=== PATIENT | male | born 1935 | race Caucasian/White ===

== ENCOUNTER 2017-10-22 17:50 | Observation (INO) | payer MEDICARE ==
[2017-10-22] MEDS ORDERED: VANCOMYCIN/ZOSYN IVPB PRN (21:06)
[2017-10-22 21:40] LABS: #Eosinphils 0.3 thou/uL (0.0-0.7); #Lymphocytes 1.7 thou/uL (1.20-3.40); #Neutrophils 6.6 thou/uL (1.40-6.50); %Basophils 0.5 % (0.0-1.0); %Eosinophils 2.7 % (0.0-10.0); %Lymphocytes 17.6 % (21.0-51.0); %Monocytes 10.2 % (0.0-10.0); Mean Corpuscular HGB CONC 33.8 g/dL (32.0-36.0); Mean Corpuscular Hemoglobin 34.3 pg (27.0-31.0); Platelet Count 179 thou/uL (130-400); RBC Distribution Width 13.1 % (11.5-14.5); Red Blood Cell (RBC) Count 4.09 mill/uL (4.70-6.10); White Blood Cell (WBC) Count 9.6 thou/uL (4.8-10.8)
[2017-10-22 22:12] LABS: Anion Gap 13 mmol/L (10-20); BUN (Urea Nitrogen) 24 mg/dL (8.4-25.7); Calc. Creatinine Clearance 0 mL/min (70-130); Calcium 8.5 mg/dL (7.8-10.44); Carbon Dioxide 21 mmol/L (23-31); Chloride 107 mmol/L (98-107); Estimated GFR-MDRD 44; Glucose 89 mg/dL (83-110); Magnesium 1.7 mg/dL (1.6-2.6); Potassium 4.2 mmol/L (3.5-5.1); Sodium 137 mmol/L (136-145)
[2017-10-22] MEDS ORDERED: Ondansetron HCl/PF 4 MG/2 ML Vial IVP PRN (22:20)
[2017-10-22] MEDS ORDERED: Acetaminophen 325 MG TAB PO PRN (22:20)
[2017-10-22] MEDS: Piperacillin/Tazobactam 3.375 GM in Sodium Chloride 0.9% 100 ML IVPB SCH (22:43)
[2017-10-22] MEDS: Vancomycin HCl 750 MG in Sodium Chloride 0.9% 250 ML 250 ML IVPB SCH (22:43)
[2017-10-22 23:36] VITALS: BMI 36.0
[2017-10-22] MEDS ORDERED: Vancomycin HCl 1 GM in Premix Bag 1 BAG IVPB SCH (23:59)
[2017-10-23] MEDS ORDERED: Vancomycin HCl 1 GM in Premix Bag 1 BAG IVPB SCH (01:00)
[2017-10-23] MEDS: Vancomycin HCl 750 MG in Sodium Chloride 0.9% 250 ML 250 ML IVPB SCH (01:07)
[2017-10-23] MEDS: Piperacillin/Tazobactam 3.375 GM in Sodium Chloride 0.9% 100 ML IVPB SCH (01:07)
[2017-10-23] MEDS ORDERED: Piperacillin/Tazobactam 2.25 GM in Sodium Chloride 0.9% 100 ML IVPB SCH ×2 (05:00→06:00)
[2017-10-23 08:21] VITALS: TEMP 97.9
[2017-10-23] MEDS ORDERED: Enoxaparin Sodium 40 MG/0.4 ML SYRINGE SC SCH (09:00)
[2017-10-23 11:26] VITALS: BP 136/82
--- NOTE | 2017-10-23 11:48 | SS ---
DATE OF ADMISSION: 10/22/2017 DATE OF DISCHARGE: 10/23/2017 PRIMARY CARE PHYSICIAN: Mario Hatch M.D. CHIEF COMPLAINT: 1. Fever. 2. Physical deconditioning. 3. Oropharyngeal dysphagia. 4. Recurrent aspiration. 5. Hypertension, essential. 6. Hyperlipidemia. CONSULTATIONS: None. PROCEDURES: None. HISTORY AND PHYSICAL: Mr. Guido is an 82-year-old gentleman, discharged on 10/12/2017 to inpatient r ehabilitation. He had been doing well; however, the day of admission, developed a fever. The labs s howed a negative urine, but the white blood cell count of 18,000, and we were asked to directly admit him over here for further workup. Chest x-ray, prior to admission, was unchanged. The patient was transferred over here after I accept ed, but was a holdover from the steward/stewardess lounge. Since admission, the patient has been refusing most of his medications, but had been eating well. He is back to his baseline mental status. No fevers or chills. No nausea, vomiting, diarrhea, constip ation. Repeat labs today show a white count that is normalized. Basic metabolic profile is normal except fo r magnesium slightly low that is being replaced. He was, otherwise, doing well and stable for discha rge. PAST MEDICAL HISTORY, PAST SURGICAL HISTORY, MEDICATIONS, ALLERGIES, FAMILY HISTORY, AND SOCIAL HISTO RY: Please see the history and physical dated 10/11/2017. DISCHARGE PHYSICAL EXAMINATION: The patient was seen and examined on the day of discharge. Discharge plan and disposition were discussed with the patient [id number] at the bedside. Discharge medications are unchanged. FOLLOWUP APPOINTMENTS: With the primary care physician within a week. DISCHARGE CONDITION: Stable. DISPOSITION: Being discharged back to inpatient rehabilitation. DISCHARGE ACTIVITY: Per cardiopulmonary limits. DISCHARGE DIET: Heart healthy.
== END 2017-10-23 13:02 ==
LOC: 2SE 18:51
PROVIDERS: ADMIT Internal Medicine Infectious Disease; ATTEND Internal Medicine Infectious Disease
DX: R50.9 Fever, unspecified (principal); R13.12 Dysphagia, oropharyngeal phase; I10 Essential (primary) hypertension; E78.5 Hyperlipidemia, unspecified; I25.10 Atherosclerotic heart disease of native coronary artery without angina pectoris; I25.2 Old myocardial infarction; F03.90 Unspecified dementia, unspecified severity, without behavioral disturbance, psychotic disturbance, mood disturbance, and anxiety; Z86.73 Personal history of transient ischemic attack (TIA), and cerebral infarction without residual deficits; Z79.82 Long term (current) use of aspirin; Z79.899 Other long term (current) drug therapy; Z95.5 Presence of coronary angioplasty implant and graft
CPT/HCPCS: 80048; 83605; 83735; 84145; 85025; 87040; 87086; G0378; G0379; 36415; J2543; J3370; J7050

== ENCOUNTER 2018-02-21 01:11 | Inpatient (IN) | payer MEDICARE ==
[2018-02-21 01:48] LABS: #Basophils 0.1 thou/uL (0.0-0.2); #Eosinphils 0.2 thou/uL (0.0-0.7); #Lymphocytes 1.5 thou/uL (1.20-3.40); #Monocytes 0.5 thou/uL (0.11-0.59); #Neutrophils 4.4 thou/uL (1.40-6.50); %Basophils 1.1 % (0.0-1.0); %Eosinophils 2.6 % (0.0-10.0); %Lymphocytes 22.2 % (21.0-51.0); %Monocytes 7.7 % (0.0-10.0); %Neutrophils 66.5 % (42.0-75.0); Mean Corpuscular Hemoglobin 35.9 pg (27.0-31.0); Platelet Count 184 thou/uL (130-400); RBC Distribution Width 14.3 % (11.5-14.5); Red Blood Cell (RBC) Count 3.89 mill/uL (4.70-6.10); White Blood Cell (WBC) Count 6.7 thou/uL (4.8-10.8)
[2018-02-21 02:11] LABS: ALT (SGPT) 56 U/L (8-55); AST (SGOT) 57 U/L (5-34); Albumin 2.2 g/dL (3.4-4.8); Alkaline Phosphatase 560 U/L (40-150); Anion Gap 14 mmol/L (10-20); BUN (Urea Nitrogen) 26 mg/dL (8.4-25.7); Bilirubin, Total 4.2 mg/dL (0.2-1.2); Calc. Creatinine Clearance 0 mL/min (70-130); Calcium 8.6 mg/dL (7.8-10.44); Carbon Dioxide 28 mmol/L (23-31); Chloride 98 mmol/L (98-107); Estimated GFR-MDRD 58; Globulin 4.1 g/dL (2.4-3.5); Glucose 77 mg/dL (83-110); Potassium 3.9 mmol/L (3.5-5.1); Protein, Total 6.3 g/dL (5.8-8.1); Sodium 136 mmol/L (136-145)
[2018-02-21] MEDS ORDERED: Sodium Chloride 0.9% 100 ML ONE (04:14)
[2018-02-21] MEDS ORDERED: Piperacillin/Tazobactam 3.375 GM VIAL ONE (04:14)
[2018-02-21] MEDS ORDERED: Sodium Chloride 0.9% 1,000 ML IV SCH (06:30)
[2018-02-21 07:26] VITALS: BMI 28.3
--- NOTE | 2018-02-21 09:14 | ULT ---
PRELIMINARY REPORT/[facility]/EMERGENTY AFTER-HOURS PROCEDURE US Abdomen Limited, Right Upper Quadrant EXAM DATE/TIME: 02/21/2018 3:13 AM CLINICAL HISTORY: 82 years old, male; Pain; Abdominal pain; Generalized TECHNIQUE: Real-time ultrasound of the abdomen with image documentation. Examination was focused on the right up per quadrant. COMPARISON: No relevant prior studies available. FINDINGS: Liver: Normal. No masses. Gallbladder: Echogenic, shadowing foci within the gallbladder, compatible with calcified gallstones. Gallbladder wall is 5 mm in thickness. Minimal pericholecystic fluid. Common bile duct: Common bile duct measures 10 mm in greatest diameter. Mild intrahepatic biliary dil ation. Pancreas: Visualized pancreas is unremarkable. Right kidney: Right kidney measures 9.8 cm in length. Simple right renal cyst measuring 15 mm in diam eter. IMPRESSION: 1. Cholelithiasis, with gall bladder wall thickening and pericholecystic fluid, compatible with acute cholecystitis. 2. Mild biliary dilation, without definite etiology identified. Obstructive choledocholithiasis possi ble. Recommend further evaluation with ERCP/MRCP. Thank you for allowing us to participate in the care of your patient. Dictated and Authenticated by: Fransisco Sears MD 02/21/2018 4:00 AM Central Time ([place] & [place]) FINAL REPORT SONOGRAM RIGHT UPPER QUADRANT: DATE: 03/03/2018. TIME: Performed on an emergency basis at 0314 hours. HISTORY: Right upper quadrant pain. FINDINGS: Agree with the preliminary report by Dr. Sears. Cholelithiasis is confirmed. There is gallbladder wall thickening and pericholecystic fluid. Common bile duct is dilated at 10 mm. Findings are consi stent with biliary obstruction and acute cholecystitis. POS: S[facility]
[2018-02-21] MEDS ORDERED: Dextrose 5 % And 0.9 % NaCl 1,000 ML IV SCH (10:30)
[2018-02-21] MEDS ORDERED: Piperacillin/Tazobactam 3.375 GM in Sodium Chloride 0.9% 100 ML IVPB SCH (12:00)
[2018-02-21] MEDS ORDERED: Morphine 2 MG/ML SYRINGE SLOW IVP PRN (12:59)
[2018-02-21] MEDS ORDERED: Ziprasidone 20 MG VIAL IM PRN (13:55)
[2018-02-21] MEDS ORDERED: Haloperidol Lactate 5 MG/ML VIAL IM PRN (13:56)
[2018-02-21] MEDS ORDERED: Acetaminophen 1,000 MG in Premix Bag 1 BAG IVPB PRN (13:57)
[2018-02-21] MEDS ORDERED: Sterile Water 10 ML VIAL FS PRN (14:02)
--- NOTE | 2018-02-21 14:02 | CON ---
DATE OF CONSULTATION: 02/21/2018 REFERRING DOCTOR: Thanh Prajapati MD REASON FOR CONSULTATION: Abdominal pain, abnormal LFTs, and abdominal sonogram showing dilation of CBD. HISTORY OF PRESENT ILLNESS: Mr. Balta Guido is an 82-year-old male transferred with abdominal pain and elevated LFTs. The patient apparently has dementia and also a history of CVA. Although, he is awake, he does not really verbalize. He tends to nod his head when asking him questions. When asked him if has abdominal pain, he says no. However, he is still very articulate and does not communicate very much. Most of the history is obtained by the ER doctor's admitting note from this morning. Apparently, he was transferred from [place] because of abdominal pain and abnormal LFTs. An abdominal sonogram done showed gallstones and also the CBD is about 10 mm. Liver function tests were elevated and cholestatic. The AST is 57, ALT is 56, alkaline phosphatase 560, bilirubin is 4.2. He has no relevant history. ALLERGIES: NONE. MEDICAL ILLNESSES: 1. Coronary artery disease, status post stent placement. 2. Hyperlipidemia. 3. Hypertension. 4. CVA. 5. Dementia. SURGERIES: 1. Appendectomy. 2. He has had left hip replacement. 3. Carotid surgery, . SOCIAL HISTORY: The patient has no history of smoking. He does drink alcohol socially. MEDICATIONS: List reviewed, which include aspirin, pantoprazole, lisinopril, and calcium carbonate. REVIEW OF SYSTEMS: Not able to obtain. PHYSICAL EXAMINATION: GENERAL: He is an elderly male, appears comfortable, in no distress. VITAL SIGNS: Afebrile, pulse is 50, blood pressure 160/77. He is icteric. NECK: Supple. No adenitis or thyromegaly noted. CARDIOVASCULAR SYSTEM: First and second heart sounds are heard. LUNGS: Clear to auscultation. ABDOMEN: Soft. Abdomen is nondistended. Abdomen is minimally tender over the epigastric area, right upper quadrant. There is no rebound or guarding. There is a fullness over the epigastric area of the right upper quadrant. Bowel sounds are normal. EXTREMITIES: Reveal no edema. LABORATORY DATA: CBC; WBC 6700, hemoglobin is 14, hematocrit 39.8, MCV 102, platelet count is 184,000, polymorphs 66, lymphocytes 22, monocytes 7. Serum chemistries; sodium is 136, potassium is 3.9, chloride 98, bicarb is 28, BUN is 26, creatinine 1.20, glucose 77, calcium 8.0, bilirubin 4.2, AST is 57, ALT 56, alkaline phosphatase 560, albumin 2.2. DIAGNOSTIC DATA: Abdominal sonogram showed gallstones and also dilation of CBD to 10 mm. CLINICAL IMPRESSION: 1. Chololithiasis and possible choledocholithiasis. 2. Coronary artery disease, status post stent placement. 3. Past history of cerebrovascular accident. 4. Dementia. 5. Hypertension. PLAN: The ERCP and stone removal. Unfortunately, there is no family available. When the family comes in, we will try to get a permit for ERCP. Hopefully, the ERCP can be done later on today. Job ID: [id number]
[2018-02-21] MEDS: Dextrose 5 % And 0.9 % NaCl 1,000 ML IV SCH ×2 (16:30→19:50)
--- NOTE | 2018-02-21 18:28 | CON ---
DATE OF CONSULTATION: 02/21/2018 CHIEF COMPLAINT: Gallstones. HISTORY OF PRESENT ILLNESS: Mr. Guido is an 82-year-old demented gentleman, who presented to the [place] [facility] room with a history of cholelithiasis and choledocholithiasis by imaging at his local emergency room. There was not much history available and the patient denies any abdominal pain, but is a very poor historian due to his advanced dementia. On speaking with the patient's , he has not really been eating much at all for the past three or four days and has had a couple of episodes of vomiting, nonbloody, nonbilious fluid. He was not complaining of any pain. However, he was taken to the emergency room last night in [facility] and a CT scan showed filling defects in the distal common bile duct, which was enlarged. This was felt to be most consistent with choledocholithiasis and the patient was transferred to [place] for further care. Ultrasound here confirmed a dilated common bile duct and multiple stones in the gallbladder, although the distal common bile duct stones were not visualized by ultrasound. This morning, the patient states that he is not having any abdominal pain or nausea. He denies hunger or thirst. He denies shortness of breath or chest pain. He is intermittently cooperative, but unable to answer any complex questions and sometimes does not answer questions at all. PAST MEDICAL HISTORY: Obtained from conversation with the and chart review. He has a history of coronary artery disease, status post stenting by Dr. Nolasco. He also has a history of an aortic aneurysm, status post stenting by Dr. Luna. He has a history of hyperlipidemia and high cholesterol and some history of lung disease. He has severe dementia and possible stroke in the past. PAST SURGICAL HISTORY: Appendectomy, coronary artery stenting and distal aortic stenting and hip replacement. He is currently a intermediate patient. He does not smoke, drink, or use illicit drugs. ALLERGIES: HE HAS NO KNOWN ALLERGIES. OUTPATIENT MEDICATIONS: Include; 1. Aspirin. 2. Pantoprazole. 3. Lisinopril. 4. Tums. 5. Zetia. 6. Melatonin. 7. Simethicone. PHYSICAL EXAMINATION: VITAL SIGNS: The patient is drowsy, but arousable and answers some questions. He is unable to state his name, location, date, or situation. GENERAL: Reveals a frail appearing elderly man in no acute distress. He is slightly jaundiced. HEENT: Unremarkable. NECK: Supple without lymphadenopathy or thyroid nodules. HEART: Regular in its rate and rhythm without murmurs, rubs, or gallops. LUNGS: Clear to auscultation bilaterally, although inspiratory effort is poor. ABDOMEN: Soft and nondistended. He states that "I am pushing the urine out" when I palpate his abdomen, but he is unable to identify any focal pain. EXTREMITIES: Warm and well perfused. He complains of pain with palpation of his ankles, but does not have any significant edema. He has normal palpable pedal pulses. NEUROLOGIC: Unable to be performed, although the patient was noted to move all four extremities in bed. He states that he ambulates short distances, but I was unable to confirm this. PSYCHIATRIC: Alert, but disoriented and only intermittently cooperative. LABORATORY DATA: His white count is normal at 6.7, hematocrit 39.8, platelets 184. Bilirubin is elevated at 4.2, AST and ALT are 57 and 56, and alkaline phosphatase is 560. Electrolytes are unremarkable. Ultrasound images are reviewed and I agree with the written report. I have reviewed the written report for the CT, but was unable to open the disk containing the images. ASSESSMENT: Cholelithiasis and choledocholithiasis. I have discussed the patient's diagnosis with his by telephone and she is coming to [facility] [place] today. Since he has three stones seen in the common bile duct on CT, I would recommend ERCP first to address the choledocholithiasis. If he tolerates this, I would recommend that he undergo laparoscopic cholecystectomy to prevent future episodes of common bile duct stones. I have consulted Dr. Nolasco to evaluate and help manage the patient perioperatively per the 's request. Dr. Leary has been consulted for ERCP and so the patient has ERCP today. Laparoscopic cholecystectomy could be performed postoperatively if he is not bloated or distended and if the ERCP is fairly quick. Otherwise, I would recommend laparoscopic cholecystectomy the following day after the bowel gas has had a chance to pass through. Job ID: [id number]
--- NOTE | 2018-02-21 18:43 | CON ---
DATE OF CONSULTATION: 02/21/2018 REASON FOR CONSULTATION: Preoperative evaluation. PRIMARY ENVIRONMENTAL PROTECTION SPECIALIST: Abelardo Nolasco MD HISTORY OF PRESENT ILLNESS: Mr. Guido is a pleasant 82-year-old white gentleman, who comes to the hospital for abdominal pain. He was diagnosed with acute cholecystitis and is scheduled to have an ERCP with Dr. Leary, and probably the next day having cholecystectomy. He has dementia and is unable to give me much history. I can see on our records, the last time he saw Dr. Nolasco was in September of last year and at that time, he was having a very nonspecific episodes of chest pain and a stress test was ordered and he never had this done. Currently, Mr. Guido denies any chest pain, tightness or pressure and he only admits to abdominal pain; however, he is somewhat demented and most of his answers are no. PAST MEDICAL HISTORY: 1. Coronary artery disease, status post stent to ramus in 2005 and balloon angioplasty of diagonal. 2. Hyperlipidemia. 3. Hypertension. 4. History of CVA. 5. Dementia. PAST SURGICAL HISTORY: 1. Appendectomy. 2. Left hip replacement. 3. Carotid surgery. SOCIAL HISTORY: No alcohol, tobacco, or drugs. OUTPATIENT MEDICATIONS: Include: 1. Crestor 40 mg a day. 2. Protonix 40 mg a day. 3. Naproxen 220 mg t.i.d. p.r.n. 4. Lisinopril 10 mg a day. 5. Zetia 10 mg a day. 6. Aspirin 325 mg a day. 7. Augmentin. ALLERGIES: NO KNOWN DRUG ALLERGIES. FAMILY HISTORY: Noncontributory. REVIEW OF SYSTEMS: Unable to obtain as the patient is minimally verbal. PHYSICAL EXAMINATION: VITAL SIGNS: Temperature 97.9, pulse 51, respiratory rate 18, sat 92% on room air, blood pressure 148/71. GENERAL: Awake, alert, and oriented to person only, in no distress. HEENT: Normocephalic and atraumatic. NECK: Supple. LUNGS: Clear. CARDIOVASCULAR: S1 and S2. No S3 or S4. There is a grade 2/6 systolic murmur at the right upper sternal border. ABDOMEN: Positive bowel sounds. EXTREMITIES: No edema. SKIN: Warm and dry. LABORATORY DATA: Laboratory work was reviewed. CBC with a white count of 6, hemoglobin of 14, hematocrit of 39, platelet count of 184. Chemistry showed a BUN of 26, creatinine 1.2, GFR was 68, glucose of 77, total bilirubin was 4.2, AST and ALT were 57 and 56 and alkaline phosphatase was 560, albumin 2.2. DIAGNOSTIC STUDIES: EKG was reviewed. Abdominal ultrasound was reviewed. ASSESSMENT AND PLAN: 1. Preoperative evaluation. Mr. Guido is at high risk for an intermediate risk procedure. He has a history of coronary artery disease. He is unable to give any history and he was scheduled to have an ischemic evaluation and he did not show up. At this time, given his acute illness, his risk for surgery is certainly not prohibitive and after talking with the family, they were in agreement to proceed regardless of being high risk and I think this is appropriate. Would proceed with the . 2. We will get an echocardiogram to evaluate LV function and valvular structures and make sure what to expect with them as far as fluids is concerned. 3. Dr. Nolasco is his primary practical nursing instructor, will follow up in the morning. Job ID: [id number]
[2018-02-21] MEDS: Famotidine/PF 20 mg/2ml Vial SLOW IVP SCH (19:50)
[2018-02-21] MEDS: Ondansetron PF 4 MG/2 ML Vial IVP PRN (19:50)
[2018-02-21] MEDS ORDERED: Morphine 4 MG/ML VIAL SLOW IVP PRN (20:00)
--- NOTE | 2018-02-22 01:19 | HP ---
CHIEF COMPLAINT: Agitation, abdominal pain. HISTORY OF PRESENT ILLNESS: He is a very pleasant 82-year-old male with past medical history of CAD, dementia, hypertension, stroke, and hyperlipidemia, who presented to the hospital with abdominal pain. The patient initially was transferred from [facility] for possible choledocholithiasis. Per who is at the bedside, she stated that for the past few days, he has been more agitated than his baseline. The patient also has been nauseated couple times and also she noticed that he appeared to be more jaundiced. The patient had complained couple times to her about having some abdominal pain. According to her, he has not been eating very much for the past few days, which is unlike himself. PAST MEDICAL HISTORY: 1. Hypertension. Hyperlipidemia. 1. History of SD. 2. He has history of strokes. 3. He has history of CAD with stent placements, last one was in 2005. PAST SURGICAL HISTORY: 1. Appendectomy. 2. Hip replacement. 3. Carotid surgery. SOCIAL HISTORY: The patient's states that he does not drink any alcohol or drug use. He is a former smoker. He currently lives in a longterm and he is a DNI. I did discuss this with the patient's . FAMILY HISTORY: No history of heart disease and cancer. MEDICATIONS: The patient takes: 1. Trazodone 50 mg daily. 2. Quetiapine 50 mg daily. 3. Omeprazole 20 mg daily. 4. Memantine 50 mg daily. 5. Furosemide 40 mg daily. 6. Citalopram 10 mg daily. 7. Melatonin 3 mg for sleep. 8. Ezetimibe 10 mg daily. 9. Divalproex 125 mg sprinkles. ALLERGIES: THE PATIENT HS NO KNOWN DRUG ALLERGIES. FAMILY HISTORY: No history of heart disease or cancer. REVIEW OF SYSTEMS: Unable to obtain since the patient has dementia. PHYSICAL EXAMINATION: VITAL SIGNS: As of the following; temperature of 97.9, heart rate of 51, respirations 18, 92% on room air, blood pressure 148/71. GENERAL: The patient is awake, oriented x2 now. HEENT: The patient's pupils equal and reactive to light. CV: S1 and S2 present. Sinus Amor. No murmurs or rubs heard. LUNGS: Clear to auscultation. No rhonchi or wheezes noted. ABDOMEN: Bowel sounds are present x2. The patient does not have any pain on palpation, on deep palpation to his right upper quadrant or anywhere in his abdomen area on my exam. NEUROLOGIC: The patient is moving all 4 extremities. SKIN: No cuts, lesions, or bruises noted. HEENT: Normocephalic, atraumatic. No lymphadenopathy noted. MUSCULOSKELETAL: No atrophy noted. LABORATORY RESULTS: As of the following; WBCs of 6.7, hemoglobin of 14.0, hematocrit of 39.8, platelets are 184. Chemistry: Sodium of 136, potassium of 3.9, BUN of 26, creatinine 1.20. His bilirubin is 4.2, AST of 57, ALT of 56, alkaline phosphatase of 560. He did have a CT of abdomen and pelvis at the outside facility, which indicated severe coronary artery calcification. There was mention of few small stones in the gallbladder. The gallbladder was noted to be distended. However, there was no gallbladder wall thickening. The patient also was found to have a right middle lobe nodule. Also noted to have dependent atelectatic changes in both posterior lung bases. Tiny nodule in the lingula measuring less than 3 mm was also noted. Mild ectasia of the descending thoracic aorta also was noted. Noted to have a large intrahepatic bile duct dilation. Filling defect in the common bile duct was also noted. The patient also had an ultrasound of the abdomen, which indicated cholelithiasis with gallbladder wall thickening and pericholecystic fluid compatible with acute cholecystitis. ASSESSMENT AND PLAN: The patient is a very pleasant 82-year-old man who presents to the hospital with abdominal pain. 1. Acute cholecystitis. The patient currently does have significant duct dilation, which could cause the patient to have choledocholithiasis. Gastroenterology has been consulted, possible endoscopic retrograde cholangiopancreatography in the morning. 2. Also, given patient's cardiac history, I will order an EKG and cardiology has been consulted for clearance. Surgery also has been consulted. I spoke with the patient's family extensively and answered all the questions. We will start the patient on some gentle hydration, pain medication as needed. 3. Elevated liver function tests and alkaline phosphatase, most likely secondary to choledocholithiasis. Continue hydration. We will check labs in the morning. Also patient is on Zosyn. 4. Dementia, agitation type. According to family, patient has severe dementia with significant agitation. We will put on p.r.n. Geodon and Haldol. We would stay away from Ativan since this would worsen patient's mentation. 5. For deep venous thrombosis prophylaxis, we will put the patient currently on sequential compression devices, but he will require some Lovenox post surgery. 6. Code status discussed with the patient's . The patient is currently a DNR. Job ID: [id number]
[2018-02-22 07:52] LABS: #Basophils 0.1 thou/uL (0.0-0.2); #Eosinphils 0.3 thou/uL (0.0-0.7); #Lymphocytes 1.4 thou/uL (1.20-3.40); #Monocytes 0.5 thou/uL (0.11-0.59); %Basophils 1.3 % (0.0-1.0); %Eosinophils 5.4 % (0.0-10.0); %Lymphocytes 26.6 % (21.0-51.0); %Monocytes 9.2 % (0.0-10.0); %Neutrophils 57.5 % (42.0-75.0)
[2018-02-22 07:54] LABS: Hemoglobin 13.2 g/dL (14.0-18.0); Mean Corpuscular HGB CONC 30.3 g/dL (32.0-36.0); Mean Corpuscular Hemoglobin 33.8 pg (27.0-31.0); Mean Platelet Volume 8.4 fL (7.4-10.4); Platelet Count 174 thou/uL (130-400); RBC Distribution Width 14.6 % (11.5-14.5); Red Blood Cell (RBC) Count 3.89 mill/uL (4.70-6.10); White Blood Cell (WBC) Count 5.2 thou/uL (4.8-10.8)
[2018-02-22 08:01] LABS: ALT (SGPT) 39 U/L (8-55); AST (SGOT) 42 U/L (5-34); Albumin 1.9 g/dL (3.4-4.8); Alkaline Phosphatase 456 U/L (40-150); Anion Gap 12 mmol/L (10-20); BUN (Urea Nitrogen) 20 mg/dL (8.4-25.7); Bilirubin, Total 3.3 mg/dL (0.2-1.2); Calc. Creatinine Clearance 55 mL/min (70-130); Calcium 8.2 mg/dL (7.8-10.44); Carbon Dioxide 26 mmol/L (23-31); Chloride 105 mmol/L (98-107); Estimated GFR-MDRD 57; Globulin 3.6 g/dL (2.4-3.5); Glucose 86 mg/dL (83-110); Potassium 3.8 mmol/L (3.5-5.1); Protein, Total 5.5 g/dL (5.8-8.1); Sodium 139 mmol/L (136-145)
[2018-02-22] MEDS: Dextrose 5 % And 0.9 % NaCl 1,000 ML IV SCH (10:14)
[2018-02-22] MEDS ORDERED: Fentanyl 100 MCG/2 ML VIAL ONE (10:15)
[2018-02-22] MEDS ORDERED: Indomethacin 50 MG SUPP ONE (10:28)
[2018-02-22] MEDS ORDERED: Iothalamate Meglumine 60% 50 ML VIAL FS ONE (10:35)
--- NOTE | 2018-02-22 14:15 | RAD ---
ERCP INTRAOPERATIVE FLUOROSCOPY: HISTORY: Cholecystitis. FINDINGS: Intraoperative fluoroscopy is provided for ERCP. IMPRESSION: Spot fluoroscopic images show an endoscopic catheter overlying the right upper quadrant. There is ca theterization and opacification of a dilated common duct, estimated at 1.3 cm. Oval filling defects are present on some images. Correlation with real-time fluoroscopy is required regarding the possibi lity of air bubbles versus persistent filling defects such as stones. POS: KASSIE
[2018-02-22] MEDS ORDERED: Glycopyrrolate 0.2 MG/ML 5 ML SYRINGE ONE (16:30)
[2018-02-22] MEDS ORDERED: ePHEDrine/0.9% NaCl/PF SYRINGE 50 mg/10 ml ONE (16:30)
[2018-02-22] MEDS ORDERED: PROPOFOL 200 MG/20 ML VIAL ONE (16:30)
[2018-02-22] MEDS ORDERED: Lidocaine 1% PF 5 ML VIAL ONE (16:30)
[2018-02-22] MEDS ORDERED: Rocuronium Bromide 10 MG/ML (10ML VIAL) ONE (16:30)
[2018-02-22] MEDS: Piperacillin/Tazobactam 3.375 GM in Sodium Chloride 0.9% 100 ML IVPB SCH (18:06)
[2018-02-22 18:11] LABS: ALT (SGPT) 37 U/L (8-55); AST (SGOT) 42 U/L (5-34); Albumin 2.1 g/dL (3.4-4.8); Alkaline Phosphatase 471 U/L (40-150); Anion Gap 14 mmol/L (10-20); BUN (Urea Nitrogen) 18 mg/dL (8.4-25.7); Calc. Creatinine Clearance 56 mL/min (70-130); Calcium 8.2 mg/dL (7.8-10.44); Carbon Dioxide 23 mmol/L (23-31); Chloride 107 mmol/L (98-107); Estimated GFR-MDRD 58; Globulin 3.6 g/dL (2.4-3.5); Glucose 90 mg/dL (83-110); Potassium 4.1 mmol/L (3.5-5.1); Protein, Total 5.7 g/dL (5.8-8.1); Sodium 140 mmol/L (136-145)
--- NOTE | 2018-02-22 19:54 | OP ---
DATE OF PROCEDURE: 02/22/2018 OPERATIVE PROCEDURE: 1. Endoscopic retrograde cholangiopancreatography. 2. Papillotomy. 3. Stone extraction with size 12 to 15 mm in balloon. PREOPERATIVE DIAGNOSES: 1. Abnormal LFTs. 2. Common bile duct stone. 3. Dilated common bile duct on CAT scan, sonogram. POSTOPERATIVE DIAGNOSES: 1. Two diverticula within the descending duodenum. Papilla was located at the margin of the diverticula. 2. Markedly dilated common bile duct with multiple filling defects. DESCRIPTION OF PROCEDURE: The patient was intubated and was given sedation by Anesthesia Department. The patient also received a dose of suppositories before the procedure. The patient was transferred from the stretcher to the fluoroscopy table. Initially, he was placed in left lateral position and transverse stomach. A bite block was placed. A Zedmo video duodenoscope under direct vision passed down the oropharynx through the GE junction into the stomach and subsequently into the descending duodenum. The patient had large diverticula in the descending duodenum. Initially, it was difficult to visualize the papilla. With a short route, the papilla could not be really visualized. The long route has to be used to try to get access to the papilla. The papilla was easily cannulated over a guidewire into the common bile duct. The contrast injection showed markedly dilated bile duct with positive filling defects; at least 3 to 4 filling defects. A generous papillotomy was brought at 12 o'clock position. Following the papillotomy, there were multiple small tiny stone fragments and sludge that came out. There was dark bile freely flowing into the duodenum. The papillotome was exchanged with biliary balloon size 12 to 15 mm. The balloon was used to sweep out 2 ducts. The third stone was very large. We could not remove it with balloon. The papillotome was used to enlarge the papilla. Following this, it was exchanged to a biliary balloon again and there was large stone which probably measured at least minimum 2 cm removed using the balloon. Subsequently, occlusion cholangiogram showed no filling defects. We saw the contrast emptying very easily. RECOMMENDATIONS: 1. Discontinue n.p.o. 2. Clear liquid diet. 3. Laparoscopic cholecystectomy as per Dr. Prajapati. This was discussed with the patient's family and his and son, and [id number]. Job ID: [id number]
[2018-02-22] MEDS: Famotidine/PF 20 mg/2ml Vial SLOW IVP SCH (20:27)
--- NOTE | 2018-02-22 21:05 | EKG ---
Test Reason : Blood Pressure : / mmHG Vent. Rate : 050 BPM Atrial Rate : 050 BPM P-R Int : 204 ms QRS Dur : 082 ms QT Int : 500 ms P-R-T Axes : 033 -18 001 degrees QTc Int : 455 ms Sinus bradycardia with Premature atrial complexes Low voltage QRS Inferior infarct (cited on or before 23-JAN-2006) Abnormal ECG When compared with ECG of 11-OCT-2017 15:02, Premature atrial complexes are now Present T wave amplitude has increased in Anterior leads QT has lengthened Confirmed by Hossein DESIR ([id number]) on 02/22/2018 9:05:36 PM Referred By: JENS Confirmed By:Hossein DESIR
[2018-02-23] MEDS: Piperacillin/Tazobactam 3.375 GM in Sodium Chloride 0.9% 100 ML IVPB SCH ×4 (00:42→21:26)
--- NOTE | 2018-02-23 05:33 | PDOC.PN ---
- Subjective Encounter Start Date: 02/22/18 Encounter Start Time: 15:00 Subjective: pt up in bed sleeping, post ERCP - Objective Resuscitation Status - Order Detail: 02/21/18 18:36 Resuscitation Status Routine Resuscitation Status: DNAR: NO Resuscitation Discussed with: pt's Vital Signs & Weight: Vital Signs (12 hours) Temp Pulse Resp BP Pulse Ox 02/23/18 04:00 97.4 F L 43 L 18 136/62 94 L 02/23/18 00:00 97.8 F 43 L 18 129/66 93 L 02/22/18 20:27 95 02/22/18 20:00 97.3 F L 45 L 18 154/79 H 95 02/22/18 18:30 43 L 160/89 H Weight Weight 186 lb 1.6 oz I&O: 02/21/18 02/22/18 02/23/18 06:59 06:59 06:59 Intake Total 1200 Balance 1200 Result Diagrams: 02/22/18 06:52 02/22/18 17:48 Phys Exam - Physical Examination Neck: no nodes, no JVD, supple, full ROM Respiratory: no wheezing, no rales, no rhonchi, wheezing present, clear to auscultation bilateral Cardiovascular: RRR, no significant murmur, no rub, gallop, irregular Gastrointestinal: soft, non-tender, no distention, positive bowel sounds Neurological: non-focal sleepy but easily arousable Dx/Plan (1) Abdominal pain Code(s): R10.9 - UNSPECIFIED ABDOMINAL PAIN Status: Acute (2) Acute cholecystitis Code(s): K81.0 - ACUTE CHOLECYSTITIS Status: Acute (3) Choledocholithiasis Code(s): K80.50 - CALCULUS OF BILE DUCT W/O CHOLANGITIS OR CHOLECYST W/O OBST Status: Acute (4) Dementia Code(s): F03.90 - UNSPECIFIED DEMENTIA WITHOUT BEHAVIORAL DISTURBANCE Status: Acute (5) Elevated LFTs Code(s): R94.5 - ABNORMAL RESULTS OF LIVER FUNCTION STUDIES Status: Acute - Plan pt post ERCP, multiple stones removed -: will put pt on CL diet and npo after midnight for lap anurag -: echo ordered not done yet -: will conitnue abx for now -: family updated * . Review of Systems - Review of Systems Other: unable to obtain - Medications/Allergies Allergies/Adverse Reactions: Allergies Allergy/AdvReac Type Severity Reaction Status Date / Time No Known Allergies Allergy Verified 10/23/17 06:16 Medications: Current Medications Famotidine (Pepcid) 20 mg SLOW IVP 2100 [facility] Last Admin: 02/22/18 20:27 Dose: 20 mg Haloperidol Lactate (Haldol) 5 mg IM Q4H PRN PRN Reason: Agitation Dextrose/Sodium Chloride (D5 0.9% Ns) 1,000 mls @ 100 mls/hr IV .Q10H [facility] Last Admin: 02/22/18 10:14 Dose: Not Given Piperacillin Sod/Tazobactam (Sod 3.375 gm/ Sodium Chloride) 100 mls @ 200 mls/ hr IVPB Q6HR [facility] Last Admin: 02/23/18 00:42 Dose: 100 mls Miscellaneous Medication (Pharmacy To Dose) 1 each IVPB PRN PRN PRN Reason: Pharmacy to dose Morphine Sulfate (Morphine) 2 mg SLOW IVP Q4H PRN PRN Reason: Pain Last Admin: 02/21/18 20:11 Dose: 2 mg Ondansetron HCl (Zofran) 4 mg IVP Q6H PRN PRN Reason: Nausea/Vomiting Last Admin: 02/21/18 19:50 Dose: 4 mg Sodium Chloride (Flush - Normal Saline) 10 ml IVF PRN PRN PRN Reason: Saline Flush Last Admin: 02/21/18 20:11 Dose: 10 ml Sterile Water (Water For Injection) 10 ml FS Q2H PRN PRN Reason: TO RECONSTITUTE ZIPRASIDONE Ziprasidone (Geodon) 10 mg IM Q2H PRN PRN Reason: Agitation
[2018-02-23] MEDS: Dextrose 5 % And 0.9 % NaCl 1,000 ML IV SCH ×2 (08:26→08:44)
--- NOTE | 2018-02-23 11:16 | PDOC.PN ---
- Subjective Encounter Start Date: 02/23/18 Encounter Start Time: 10:30 Subjective: pt up in bed more awake -: pt got upset and was agressive last night - Objective Resuscitation Status - Order Detail: 02/21/18 18:36 Resuscitation Status Routine Resuscitation Status: DNAR: NO Resuscitation Discussed with: pt's Vital Signs & Weight: Vital Signs (12 hours) Temp Pulse Resp BP Pulse Ox 02/23/18 08:00 97.4 F L 42 L 18 176/50 H 93 L 02/23/18 04:00 97.4 F L 43 L 18 136/62 94 L 02/23/18 00:00 97.8 F 43 L 18 129/66 93 L Weight Weight 186 lb 1.6 oz I&O: 02/22/18 02/23/18 02/24/18 06:59 06:59 06:59 Intake Total 1200 800 Balance 1200 800 Result Diagrams: 02/22/18 06:52 02/22/18 17:48 Phys Exam - Physical Examination Neck: no nodes, no JVD, supple, full ROM Respiratory: no wheezing, no rales, no rhonchi, wheezing present, clear to auscultation bilateral Cardiovascular: RRR, no significant murmur, no rub, gallop, irregular Gastrointestinal: soft, non-tender, no distention, positive bowel sounds awake, oriented to self Dx/Plan (1) Abdominal pain Code(s): R10.9 - UNSPECIFIED ABDOMINAL PAIN Status: Acute (2) Acute cholecystitis Code(s): K81.0 - ACUTE CHOLECYSTITIS Status: Acute (3) Choledocholithiasis Code(s): K80.50 - CALCULUS OF BILE DUCT W/O CHOLANGITIS OR CHOLECYST W/O OBST Status: Acute (4) Dementia Code(s): F03.90 - UNSPECIFIED DEMENTIA WITHOUT BEHAVIORAL DISTURBANCE Status: Acute (5) Elevated LFTs Code(s): R94.5 - ABNORMAL RESULTS OF LIVER FUNCTION STUDIES Status: Acute - Plan s/p ercp, going to surgery today for lap anurag -: iv out unable to get iv in -: echo pending * . Review of Systems - Review of Systems Respiratory: negative: Cough, Dry, Shortness of Breath, Hemoptysis, SOB with Excertion, Pleuritic Pain, Sputum, Wheezing Cardiovascular: negative: chest pain, palpitations, orthopnea, paroxysmal nocturnal dyspnea, edema, light headedness, other Gastrointestinal: negative: Nausea, Vomiting, Abdominal Pain, Diarrhea, Constipation, Melena, Hematochezia, Other - Medications/Allergies Allergies/Adverse Reactions: Allergies Allergy/AdvReac Type Severity Reaction Status Date / Time No Known Allergies Allergy Verified 10/23/17 06:16 Medications: Current Medications Famotidine (Pepcid) 20 mg SLOW IVP 2100 [facility] Last Admin: 02/22/18 20:27 Dose: 20 mg Haloperidol Lactate (Haldol) 5 mg IM Q4H PRN PRN Reason: Agitation Dextrose/Sodium Chloride (D5 0.9% Ns) 1,000 mls @ 100 mls/hr IV .Q10H [facility] Last Admin: 02/23/18 08:44 Dose: Not Given Piperacillin Sod/Tazobactam (Sod 3.375 gm/ Sodium Chloride) 100 mls @ 200 mls/ hr IVPB Q6HR [facility] Last Admin: 02/23/18 08:26 Dose: Not Given Miscellaneous Medication (Pharmacy To Dose) 1 each IVPB PRN PRN PRN Reason: Pharmacy to dose Morphine Sulfate (Morphine) 2 mg SLOW IVP Q4H PRN PRN Reason: Pain Last Admin: 02/21/18 20:11 Dose: 2 mg Ondansetron HCl (Zofran) 4 mg IVP Q6H PRN PRN Reason: Nausea/Vomiting Last Admin: 02/21/18 19:50 Dose: 4 mg Sodium Chloride (Flush - Normal Saline) 10 ml IVF PRN PRN PRN Reason: Saline Flush Last Admin: 02/21/18 20:11 Dose: 10 ml Sterile Water (Water For Injection) 10 ml FS Q2H PRN PRN Reason: TO RECONSTITUTE ZIPRASIDONE Ziprasidone (Geodon) 10 mg IM Q2H PRN PRN Reason: Agitation
[2018-02-23 11:32] LABS: #Basophils 0.1 thou/uL (0.0-0.2); #Eosinphils 0.2 thou/uL (0.0-0.7); #Lymphocytes 1.5 thou/uL (1.20-3.40); #Monocytes 0.5 thou/uL (0.11-0.59); #Neutrophils 4.2 thou/uL (1.40-6.50); %Basophils 1.3 % (0.0-1.0); %Eosinophils 2.4 % (0.0-10.0); %Lymphocytes 23.9 % (21.0-51.0); %Monocytes 7.4 % (0.0-10.0); %Neutrophils 64.9 % (42.0-75.0); Hemoglobin 13.7 g/dL (14.0-18.0); Mean Corpuscular HGB CONC 32.2 g/dL (32.0-36.0); Mean Corpuscular Hemoglobin 33.2 pg (27.0-31.0); Mean Platelet Volume 7.6 fL (7.4-10.4); Platelet Count 147 thou/uL (130-400); RBC Distribution Width 14.3 % (11.5-14.5); Red Blood Cell (RBC) Count 4.13 mill/uL (4.70-6.10); White Blood Cell (WBC) Count 6.4 thou/uL (4.8-10.8)
[2018-02-23 11:55] LABS: ALT (SGPT) 40 U/L (8-55); AST (SGOT) 42 U/L (5-34); Albumin 2.2 g/dL (3.4-4.8); Alkaline Phosphatase 465 U/L (40-150); Anion Gap 16 mmol/L (10-20); BUN (Urea Nitrogen) 21 mg/dL (8.4-25.7); Bilirubin, Total 3.1 mg/dL (0.2-1.2); Calc. Creatinine Clearance 50 mL/min (70-130); Calcium 8.4 mg/dL (7.8-10.44); Carbon Dioxide 24 mmol/L (23-31); Chloride 108 mmol/L (98-107); Estimated GFR-MDRD 51; Glucose 82 mg/dL (83-110); Potassium 4.1 mmol/L (3.5-5.1); Protein, Total 6.2 g/dL (5.8-8.1); Sodium 144 mmol/L (136-145)
--- NOTE | 2018-02-23 12:20 | PRG ---
DATE OF SERVICE: 02/23/2018 SUBJECTIVE: Mr. Guido is seen today for Dr. Prajapati. The patient underwent ERCP, sphincterotomy stone extraction by Dr. Leary yesterday. He seems to be doing well this morning. His laboratories are pending. CBC returned this morning, white count 6.4, hemoglobin 13.7. Comprehensive metabolic profile is pending. Plan is to let him eat today and plan laparoscopic cholecystectomy tomorrow. I have discussed with his . Risks and benefits discussed. OBJECTIVE: LUNGS: Clear to auscultation. CARDIAC: Regular rate and rhythm without murmur or gallop. ABDOMEN: Soft and nontender. ASSESSMENT: 1. Choledocholithiasis status post endoscopic retrograde cholangiopancreatography sphincterotomy. 2. Cholecystitis and cholelithiasis. PLAN: Laparoscopic cholecystectomy Sunday. Risks and benefits discussed. Job ID: [id number]
[2018-02-23] MEDS ORDERED: Escitalopram Oxalate 10 mg Tablet PO SCH (16:45)
[2018-02-23] MEDS: Divalproex Sodium 125 mg Sprinkle Capsule PO SCH (17:25)
[2018-02-23] MEDS: traZODone HCl 50 MG TAB PO SCH (20:47)
[2018-02-23] MEDS: Melatonin 3 MG TAB PO SCH (20:47)
[2018-02-24] MEDS: Piperacillin/Tazobactam 3.375 GM in Sodium Chloride 0.9% 100 ML IVPB SCH ×3 (00:25→12:06)
--- NOTE | 2018-02-24 02:37 | PRG ---
DATE OF SERVICE: 02/23/2018 REASON FOR CONSULTATION: Choledocholithiasis. SUBJECTIVE: The patient did well overnight with no acute events or problems. He did undergo ERCP yesterday with removal of multiple small stones within the common bile duct. Today, he does not endorse any increased abdominal pain, that might be indicative of post-ERCP pancreatitis. Currently, denies nausea, vomiting, fevers, chills, GI bleeding, dysphagia or odynophagia. States that his abdominal pain has significantly improved. OBJECTIVE: VITAL SIGNS: Temperature 97.7, pulse 43, blood pressure 120/57, respiratory rate 16, and saturating 91% on room air. GENERAL: The patient is lying in bed, in no acute distress. Alert and oriented x2. CARDIOVASCULAR: Regular rate and rhythm. RESPIRATORY: Clear to auscultation bilaterally. ABDOMEN: Normoactive bowel sounds. Soft, nondistended, and mild tenderness to palpation in the right upper quadrant region. EXTREMITIES: No cyanosis, clubbing or edema. LABORATORY DATA: CBC with a white blood cell count of 6.4, hemoglobin 13.7, hematocrit 42.5, and platelets 147. Chemistry with a sodium of 144, potassium 4.1, chloride 108, CO2 of 24, BUN 21, creatinine 1.34, and glucose 82. AST 42, ALT 40, alk phos 465, and total bilirubin 3.1. ASSESSMENT AND PLAN: The patient is an 82-year-old male with past medical history of coronary artery disease, hyperlipidemia, hypertension, cerebrovascular accident and dementia, presenting with choledocholithiasis. Choledocholithiasis. The patient initially presented with complaints of abdominal pain and abnormal LFTs noted on labs obtained in [place]. Upon transferring here to [facility], an abdominal ultrasound was done, which showed gallstones within the common bile duct and dilation of the common bile duct to approximately 10 mm. He subsequently underwent ERCP on February 22, 2018, with removal of multiple stones within the common bile duct itself. Currently doing well without any evidence of post-ERCP pancreatitis, although he does continue to have elevation of his transaminases, but may just require sometime for at least a fall now that obstruction has been relieved. RECOMMENDATIONS: 1. We would continue to trend LFTs daily for evaluation of treatment of choledocholithiasis via ERCP. 2. Recommend cholecystectomy during this hospitalization. We will defer to General Surgery Service for timing of the operation. 3. We will sign off at this time. Please call with any additional questions. Job ID: [id number]
[2018-02-24 05:08] LABS: ALT (SGPT) 39 U/L (8-55); AST (SGOT) 46 U/L (5-34); Albumin 1.9 g/dL (3.4-4.8); Alkaline Phosphatase 403 U/L (40-150); Anion Gap 11 mmol/L (10-20); BUN (Urea Nitrogen) 18 mg/dL (8.4-25.7); Bilirubin, Total 2.5 mg/dL (0.2-1.2); Calc. Creatinine Clearance 58 mL/min (70-130); Carbon Dioxide 25 mmol/L (23-31); Chloride 105 mmol/L (98-107); Estimated GFR-MDRD 60; Globulin 3.5 g/dL (2.4-3.5); Glucose 82 mg/dL (83-110); Potassium 3.3 mmol/L (3.5-5.1); Protein, Total 5.4 g/dL (5.8-8.1); Sodium 138 mmol/L (136-145)
[2018-02-24 06:59] LABS: #Basophils 0.1 thou/uL (0.0-0.2); #Eosinphils 0.3 thou/uL (0.0-0.7); #Lymphocytes 1.7 thou/uL (1.20-3.40); #Monocytes 0.5 thou/uL (0.11-0.59); #Neutrophils 3.1 thou/uL (1.40-6.50); %Basophils 1.2 % (0.0-1.0); %Eosinophils 5.3 % (0.0-10.0); %Lymphocytes 30.1 % (21.0-51.0); %Monocytes 8.8 % (0.0-10.0); %Neutrophils 54.6 % (42.0-75.0); Hemoglobin 12.3 g/dL (14.0-18.0); MDiff Complete? YES; Macrocytosis SLIGHT = 6-15 cells (100X) (0-5/hpf); Mean Corpuscular HGB CONC 32.8 g/dL (32.0-36.0); Mean Corpuscular Hemoglobin 34.8 pg (27.0-31.0); Platelet Count 151 thou/uL (130-400); RBC Distribution Width 14.3 % (11.5-14.5); Red Blood Cell (RBC) Count 3.55 mill/uL (4.70-6.10); White Blood Cell (WBC) Count 5.7 thou/uL (4.8-10.8)
[2018-02-24] MEDS ORDERED: Iothalamate Meglumine 60% 50 ML VIAL FS ONE (08:52)
[2018-02-24] MEDS ORDERED: Bupivacaine HCl 0.5%/Epinephrine 1:200,000/PF 30 ml Vial ONE (08:52)
[2018-02-24] MEDS: Dextrose 5%-Lactated Ringers 1,000 ML IV SCH ×2 (08:55→14:12)
[2018-02-24] MEDS: Escitalopram Oxalate 10 mg Tablet PO SCH (08:56)
[2018-02-24] MEDS ORDERED: Sodium Chloride 0.9% 100 ML ONE (09:39)
[2018-02-24] MEDS ORDERED: Fentanyl 100 MCG/2 ML VIAL ONE (12:42)
[2018-02-24] MEDS ORDERED: traMADol HCl 50 MG TAB PO PRN ×2 (13:12)
[2018-02-24] MEDS ORDERED: Acetaminophen 500 MG TAB PO PRN (13:12)
[2018-02-24] MEDS ORDERED: Morphine 4 MG/ML VIAL SLOW IVP PRN (15:32)
[2018-02-24] MEDS ORDERED: Rocuronium Bromide 10 MG/ML (10ML VIAL) ONE (15:36)
[2018-02-24] MEDS ORDERED: PROPOFOL 200 MG/20 ML VIAL ONE (15:36)
[2018-02-24] MEDS ORDERED: Glycopyrrolate 0.2 MG/ML 5 ML SYRINGE ONE (15:36)
[2018-02-24] MEDS ORDERED: Succinylcholine Chloride 20 MG/ML 10 ml SYRINGE FS ONE (15:36)
--- NOTE | 2018-02-24 15:42 | OP ---
DATE OF PROCEDURE: 02/24/2018 PREOPERATIVE DIAGNOSES: 1. Cholecystitis. 2. Cholelithiasis. 3. Choledocholithiasis. 4. Status post ERCP, sphincterotomy, stone extraction 2 days ago. PROCEDURE PERFORMED: Laparoscopic video cholecystectomy. ANESTHESIA: General, local with 0.5% Marcaine with epinephrine 30 mL. DESCRIPTION OF PROCEDURE: The patient was taken to the operating room. Under general anesthesia, abdomen was prepared with ChloraPrep and draped in routine fashion. Local anesthetic with 0.5% Marcaine with epinephrine was infiltrated in the skin and subcutaneous tissue about each port site. An infraumbilical incision was made. Pneumoperitoneum to 15 mmHg obtained with a Veress needle, replaced with a 5 port. Laparoscope was inserted. Right subxiphoid incision was made and 11 port placed. Right subcostal incision was made in the midclavicular and anterior axillary lines and the 5 port was placed. Fundus of the gallbladder was grasped and reflected cephalad. Infundibulum was grasped and reflected laterally. Gallbladder was slightly inflamed, wall thickened. Cystic artery and duct dissected free. Critical view obtained. Cystic artery and duct double clipped proximally and divided. Gallbladder dissected free from liver bed, obtaining good hemostasis prior to division of the final peritoneal attachments. Gallbladder and contents removed, submitted to Pathology. Good hemostasis was obtained with cautery. Irrigant and pneumoperitoneum evacuated. All instruments were removed and all skin incisions were approximated with interrupted subdermal 4-0 Monocryl and [place] glue applied. The patient tolerated the procedure well. Job ID: [id number]
[2018-02-24] MEDS: Acetaminophen 1,000 MG in Premix Bag 1 BAG IVPB PRN (15:54)
--- NOTE | 2018-02-24 15:59 | PDOC.PN ---
- Subjective Encounter Start Date: 02/24/18 Encounter Start Time: 10:15 Subjective: pt up in bed complains of pain to his abdomen - Objective Resuscitation Status - Order Detail: 02/21/18 18:36 Resuscitation Status Routine Resuscitation Status: DNAR: NO Resuscitation Discussed with: pt's Vital Signs & Weight: Vital Signs (12 hours) Temp Pulse Resp BP Pulse Ox 02/24/18 13:45 97.4 F L 66 16 115/66 92 L 02/24/18 08:00 97.6 F 41 L 16 164/76 H 94 L 02/24/18 04:00 97.5 F L 41 L 16 125/64 93 L Weight Weight 186 lb 1.6 oz I&O: 02/23/18 02/24/18 02/25/18 06:59 06:59 06:59 Intake Total 800 Balance 800 Result Diagrams: 02/24/18 04:21 02/24/18 04:21 Phys Exam - Physical Examination Neck: no nodes, no JVD, supple, full ROM Respiratory: no wheezing, no rales, no rhonchi, wheezing present, clear to auscultation bilateral Cardiovascular: RRR, no significant murmur, no rub, gallop, irregular Gastrointestinal: soft, positive bowel sounds small incision noted Musculoskeletal: no edema, pulses present, edema present Dx/Plan (1) Abdominal pain Code(s): R10.9 - UNSPECIFIED ABDOMINAL PAIN Status: Acute (2) Acute cholecystitis Code(s): K81.0 - ACUTE CHOLECYSTITIS Status: Acute (3) Choledocholithiasis Code(s): K80.50 - CALCULUS OF BILE DUCT W/O CHOLANGITIS OR CHOLECYST W/O OBST Status: Acute (4) Dementia Code(s): F03.90 - UNSPECIFIED DEMENTIA WITHOUT BEHAVIORAL DISTURBANCE Status: Acute (5) Elevated LFTs Code(s): R94.5 - ABNORMAL RESULTS OF LIVER FUNCTION STUDIES Status: Acute - Plan will add iv tylenol and prn morphine if needed -: pt's home meds restarted. family updated -: ef 50-55% -: agree with abx discontinued * . Review of Systems - Review of Systems Other: pt drowsy unable to perform ros. - Medications/Allergies Allergies/Adverse Reactions: Allergies Allergy/AdvReac Type Severity Reaction Status Date / Time No Known Allergies Allergy Verified 10/23/17 06:16 Medications: Current Medications Divalproex Sodium (Depakote Sprinkle) 125 mg PO 1800 [facility] Last Admin: 02/23/18 17:25 Dose: 125 mg Enoxaparin Sodium (Lovenox) 40 mg SC 2100 [facility] Escitalopram Oxalate (Lexapro) 10 mg PO DAILY [facility] Last Admin: 02/24/18 08:56 Dose: Not Given Haloperidol Lactate (Haldol) 5 mg IM Q4H PRN PRN Reason: Agitation Dextrose/Lactated Ringer's (D5 Lr) 1,000 mls @ 100 mls/hr IV .Q10H [facility] Last Admin: 02/24/18 14:12 Dose: 1,000 mls Acetaminophen 1,000 mg/ Device 100 mls @ 400 mls/hr IVPB Q8H PRN PRN Reason: Fever/Mild Pain Stop: 02/25/18 15:33 Last Admin: 02/24/18 15:54 Dose: 100 mls Melatonin (Melatonin) 3 mg PO [facility] Last Admin: 02/23/18 20:47 Dose: 3 mg Miscellaneous Medication (Pharmacy To Dose) 1 each IVPB PRN PRN PRN Reason: Pharmacy to dose Morphine Sulfate (Morphine) 2 mg SLOW IVP Q4H PRN PRN Reason: Mild-Moderate Pain (1-5) Ondansetron HCl (Zofran) 4 mg IVP Q6H PRN PRN Reason: Nausea/Vomiting Last Admin: 02/21/18 19:50 Dose: 4 mg Polyethylene Glycol (Miralax) 17 gm PO DAILY [facility] Quetiapine Fumarate (Seroquel) 50 mg PO HS [facility] Sodium Chloride (Flush - Normal Saline) 10 ml IVF PRN PRN PRN Reason: Saline Flush Last Admin: 02/21/18 20:11 Dose: 10 ml Sterile Water (Water For Injection) 10 ml FS Q2H PRN PRN Reason: TO RECONSTITUTE ZIPRASIDONE Tramadol HCl (Ultram) 50 mg PO Q6H PRN PRN Reason: Pain 1-5 Last Admin: 02/24/18 14:40 Dose: 50 mg Trazodone HCl (Desyrel) 50 mg PO HS [facility] Last Admin: 02/23/18 20:47 Dose: 50 mg Ziprasidone (Geodon) 10 mg IM Q2H PRN PRN Reason: Agitation
[2018-02-24] MEDS: Divalproex Sodium 125 mg Sprinkle Capsule PO SCH (17:45)
[2018-02-24] MEDS: Melatonin 3 MG TAB PO SCH (21:06)
[2018-02-24] MEDS: Enoxaparin Sodium 40 MG/0.4 ML SYRINGE SC SCH (21:07)
[2018-02-24] MEDS: traZODone HCl 50 MG TAB PO SCH (21:07)
[2018-02-25] MEDS: Dextrose 5%-Lactated Ringers 1,000 ML IV SCH ×4 (01:46→23:15)
[2018-02-25] MEDS: Acetaminophen 1,000 MG in Premix Bag 1 BAG IVPB PRN (05:12)
[2018-02-25 06:34] LABS: #Basophils 0.1 thou/uL (0.0-0.2); #Monocytes 0.3 thou/uL (0.11-0.59); #Neutrophils 11.4 thou/uL (1.40-6.50); %Basophils 0.6 % (0.0-1.0); %Eosinophils 0.2 % (0.0-10.0); %Lymphocytes 7.9 % (21.0-51.0); %Monocytes 2.6 % (0.0-10.0); %Neutrophils 88.7 % (42.0-75.0); Hemoglobin 12.2 g/dL (14.0-18.0); Mean Corpuscular HGB CONC 32.1 g/dL (32.0-36.0); Mean Corpuscular Hemoglobin 34.1 pg (27.0-31.0); Mean Platelet Volume 8.1 fL (7.4-10.4); Platelet Count 161 thou/uL (130-400); RBC Distribution Width 14.5 % (11.5-14.5); Red Blood Cell (RBC) Count 3.58 mill/uL (4.70-6.10); White Blood Cell (WBC) Count 12.9 thou/uL (4.8-10.8)
[2018-02-25 06:54] LABS: ALT (SGPT) 36 U/L (8-55); AST (SGOT) 48 U/L (5-34); Albumin 1.7 g/dL (3.4-4.8); Alkaline Phosphatase 325 U/L (40-150); Anion Gap 15 mmol/L (10-20); BUN (Urea Nitrogen) 16 mg/dL (8.4-25.7); Bilirubin, Total 1.8 mg/dL (0.2-1.2); Calc. Creatinine Clearance 57 mL/min (70-130); Calcium 7.8 mg/dL (7.8-10.44); Carbon Dioxide 21 mmol/L (23-31); Chloride 109 mmol/L (98-107); Estimated GFR-MDRD 60; Globulin 3.5 g/dL (2.4-3.5); Glucose 147 mg/dL (83-110); Potassium 3.8 mmol/L (3.5-5.1); Protein, Total 5.2 g/dL (5.8-8.1); Sodium 141 mmol/L (136-145)
[2018-02-25] MEDS: Escitalopram Oxalate 10 mg Tablet PO SCH (09:37)
[2018-02-25] MEDS ORDERED: Sodium Chloride 0.9% 500 ML IV SCH (09:45)
[2018-02-25] MEDS ORDERED: Lactated Ringer's 500 ML IV SCH (09:45)
--- NOTE | 2018-02-25 09:55 | PRG ---
DATE OF SERVICE: 02/25/2018 SUBJECTIVE: Mr. Guido is doing fairly well today. He is alert and awake. He is found to have a blood pressure of 70 systolic this morning. Overnight, it was 108 to 129. Currently, it is 100 systolic. This morning, his laboratory reveals white count of 12, hemoglobin of 12. Basic metabolic profile unremarkable. Potassium 3.8 this morning. Bilirubin is 1.8 down from 2.5 yesterday and 3.1 the day prior. OBJECTIVE: LUNGS: Clear to auscultation. CARDIAC: Regular rate and rhythm without murmur or gallop. ABDOMEN: Postoperative tenderness. Surgical wound looks good. ASSESSMENT AND PLAN: Mild dehydration. We will continue IV fluids LR 125 an hour. Hospitalist has given him a 500 mL saline bolus. I will repeat a 500 mL saline bolus and another 500 mL LR bolus. The patient will be observed today. Hopefully, he can be discharged tomorrow. We will start Levaquin again due to his choledocholithiasis and recent cholecystectomy and blood pressure. I doubt he has an intraabdominal infection, but we will continue intravenous antibiotics Levaquin. Job ID: [id number]
[2018-02-25 10:28] LABS: Hemoglobin 11.4 g/dL (14.0-18.0)
[2018-02-25] MEDS: Lactated Ringer's 1,000 ML IV SCH ×3 (10:35→20:55)
[2018-02-25] MEDS ORDERED: Albumin 25% 25 GM/100 ML BOT IVPB SCH (10:55)
[2018-02-25 11:40] LABS: Phosphorus 2.1 mg/dL (2.3-4.7)
[2018-02-25] MEDS: Polyethylene Glycol 3350 17 GM Packet PO SCH (11:50)
[2018-02-25] MEDS ORDERED: Potassium Phosphate 9 MMOL in Sodium Chloride 0.9% 100 ML IVPB SCH (12:30)
--- NOTE | 2018-02-25 12:33 | PDOC.PN ---
- Subjective Encounter Start Date: 02/25/18 Encounter Start Time: 10:00 Subjective: pt up in bed with his eyes close but does open his right eye at times - Objective Resuscitation Status - Order Detail: 02/21/18 18:36 Resuscitation Status Routine Resuscitation Status: DNAR: NO Resuscitation Discussed with: pt's Vital Signs & Weight: Vital Signs (12 hours) Temp Pulse Resp BP Pulse Ox 02/25/18 11:30 97.5 F L 58 L 18 91/55 L 93 L 02/25/18 07:15 98.1 F 62 16 83/49 L 92 L 02/25/18 04:45 97.7 F 66 20 108/68 94 L 02/25/18 00:41 98.1 F 70 20 117/69 93 L Weight Weight 186 lb 1.6 oz I&O: 02/24/18 02/25/18 02/26/18 06:59 06:59 06:59 Intake Total 650 Balance 650 Result Diagrams: 02/25/18 10:13 02/25/18 06:02 Phys Exam - Physical Examination Neck: no nodes, no JVD, supple, full ROM Respiratory: no wheezing, no rales, no rhonchi, wheezing present, clear to auscultation bilateral Cardiovascular: RRR, no significant murmur, no rub, gallop, irregular Gastrointestinal: soft, non-tender, no distention, positive bowel sounds pt drowsy easily arousable Dx/Plan (1) Abdominal pain Code(s): R10.9 - UNSPECIFIED ABDOMINAL PAIN Status: Acute (2) Acute cholecystitis Code(s): K81.0 - ACUTE CHOLECYSTITIS Status: Acute (3) Choledocholithiasis Code(s): K80.50 - CALCULUS OF BILE DUCT W/O CHOLANGITIS OR CHOLECYST W/O OBST Status: Acute (4) Dementia Code(s): F03.90 - UNSPECIFIED DEMENTIA WITHOUT BEHAVIORAL DISTURBANCE Status: Acute (5) Elevated LFTs Code(s): R94.5 - ABNORMAL RESULTS OF LIVER FUNCTION STUDIES Status: Acute - Plan pt's bp low, will given him a bolus and due to low albumin will -: given him albumin too. surgery added abx, lft's trending down -: hh is low normal. will hold his antipsy meds which could be adding an -: additive effect with his dowsiness. low bp could be due to dehydration -: will replace electrolytes * . Review of Systems - Review of Systems Other: unable to perform - Medications/Allergies Allergies/Adverse Reactions: Allergies Allergy/AdvReac Type Severity Reaction Status Date / Time No Known Allergies Allergy Verified 10/23/17 06:16 Medications: Current Medications Albumin Human (Albumin 25%) 25 gm IVPB NOW [facility] Stop: 02/25/18 16:00 Last Admin: 02/25/18 12:32 Dose: 25 gm Divalproex Sodium (Depakote Sprinkle) 125 mg PO 1800 [facility] Last Admin: 02/24/18 17:45 Dose: 125 mg Enoxaparin Sodium (Lovenox) 40 mg SC 2100 [facility] Last Admin: 02/24/18 21:07 Dose: 40 mg Escitalopram Oxalate (Lexapro) 10 mg PO DAILY [facility] Last Admin: 02/25/18 09:37 Dose: Not Given Haloperidol Lactate (Haldol) 5 mg IM Q4H PRN PRN Reason: Agitation Dextrose/Lactated Ringer's (D5 Lr) 1,000 mls @ 100 mls/hr IV .Q10H [facility] Last Admin: 02/25/18 04:22 Dose: Not Given Acetaminophen 1,000 mg/ Device 100 mls @ 400 mls/hr IVPB Q8H PRN PRN Reason: Fever/Mild Pain Stop: 02/25/18 15:33 Last Admin: 02/25/18 05:12 Dose: 100 mls Lactated Ringer's (Lactated Ringer's) 1,000 mls @ 125 mls/hr IV .Q8H [facility] Levofloxacin 500 mg/ Device 100 mls @ 100 mls/hr IVPB Q24HR [facility] Last Admin: 02/25/18 10:41 Dose: 100 mls Magnesium Sulfate 1 gm/ Sodium (Chloride) 102 mls @ 100 mls/hr IVPB NOW [facility] Stop: 02/25/18 13:00 Potassium Phosphate 9 mmol/ (Sodium Chloride) 103 mls @ 25 mls/hr IVPB ONE [facility] Melatonin (Melatonin) 3 mg PO HS [facility] Last Admin: 02/24/18 21:06 Dose: 3 mg Miscellaneous Medication (Pharmacy To Dose) 1 each IVPB PRN PRN PRN Reason: Pharmacy to dose Morphine Sulfate (Morphine) 2 mg SLOW IVP Q4H PRN PRN Reason: Mild-Moderate Pain (1-5) Ondansetron HCl (Zofran) 4 mg IVP Q6H PRN PRN Reason: Nausea/Vomiting Last Admin: 02/21/18 19:50 Dose: 4 mg Polyethylene Glycol (Miralax) 17 gm PO DAILY [facility] Last Admin: 02/25/18 11:50 Dose: Not Given Quetiapine Fumarate (Seroquel) 50 mg PO [facility] Last Admin: 02/24/18 21:06 Dose: 50 mg Sodium Chloride (Flush - Normal Saline) 10 ml IVF PRN PRN PRN Reason: Saline Flush Last Admin: 02/21/18 20:11 Dose: 10 ml Sterile Water (Water For Injection) 10 ml FS Q2H PRN PRN Reason: TO RECONSTITUTE ZIPRASIDONE Tramadol HCl (Ultram) 50 mg PO Q6H PRN PRN Reason: Pain 1-5 Last Admin: 02/24/18 14:40 Dose: 50 mg Trazodone HCl (Desyrel) 50 mg PO [facility] Last Admin: 02/24/18 21:07 Dose: 50 mg Ziprasidone (Geodon) 10 mg IM Q2H PRN PRN Reason: Agitation
[2018-02-25] MEDS: Divalproex Sodium 125 mg Sprinkle Capsule PO SCH (19:29)
[2018-02-25] MEDS: Melatonin 3 MG TAB PO SCH (20:53)
[2018-02-25] MEDS: traZODone HCl 50 MG TAB PO SCH (20:53)
[2018-02-25] MEDS: Enoxaparin Sodium 40 MG/0.4 ML SYRINGE SC SCH (20:55)
[2018-02-26] MEDS ORDERED: Lactated Ringer's 500 ML IV SCH (02:45)
[2018-02-26 06:34] LABS: #Eosinphils 0.2 thou/uL (0.0-0.7); #Lymphocytes 1.1 thou/uL (1.20-3.40); #Monocytes 0.4 thou/uL (0.11-0.59); #Neutrophils 9.1 thou/uL (1.40-6.50); %Basophils 0.2 % (0.0-1.0); %Eosinophils 2.3 % (0.0-10.0); %Lymphocytes 10.5 % (21.0-51.0); %Monocytes 3.3 % (0.0-10.0); %Neutrophils 83.8 % (42.0-75.0); Hemoglobin 11.7 g/dL (14.0-18.0); Mean Corpuscular HGB CONC 32.1 g/dL (32.0-36.0); Mean Corpuscular Hemoglobin 34.8 pg (27.0-31.0); Mean Platelet Volume 8.1 fL (7.4-10.4); Platelet Count 138 thou/uL (130-400); RBC Distribution Width 14.9 % (11.5-14.5); Red Blood Cell (RBC) Count 3.36 mill/uL (4.70-6.10); White Blood Cell (WBC) Count 10.9 thou/uL (4.8-10.8)
[2018-02-26 06:56] LABS: ALT (SGPT) 29 U/L (8-55); AST (SGOT) 32 U/L (5-34); Alkaline Phosphatase 266 U/L (40-150); Anion Gap 12 mmol/L (10-20); BUN (Urea Nitrogen) 14 mg/dL (8.4-25.7); Bilirubin, Total 1.9 mg/dL (0.2-1.2); Calc. Creatinine Clearance 70 mL/min (70-130); Calcium 8.1 mg/dL (7.8-10.44); Carbon Dioxide 21 mmol/L (23-31); Chloride 112 mmol/L (98-107); Estimated GFR-MDRD 75; Globulin 3.2 g/dL (2.4-3.5); Glucose 85 mg/dL (83-110); Potassium 4.1 mmol/L (3.5-5.1); Protein, Total 5.2 g/dL (5.8-8.1); Sodium 141 mmol/L (136-145)
[2018-02-26] MEDS ORDERED: Potassium Chloride 20 MEQ TAB PO SCH (07:00)
[2018-02-26] MEDS ORDERED: Lactated Ringer's 1,000 ML IV SCH (09:25)
[2018-02-26] MEDS ORDERED: Albumin 25% 25 GM/100 ML BOT IVPB SCH (09:25)
[2018-02-26] MEDS ORDERED: ISOVUE-370 76%-LOCM 1 ML ONE ×2 (09:51→09:52)
[2018-02-26] MEDS: Polyethylene Glycol 3350 17 GM Packet PO SCH (10:34)
[2018-02-26] MEDS: Escitalopram Oxalate 10 mg Tablet PO SCH (10:34)
--- NOTE | 2018-02-26 12:21 | RAD ---
RADIOGRAPH CHEST 1 VIEW: Date: 02/26/2018. Time: 10:15 a.m. HISTORY: An 82-year-old male with dyspnea. COMPARISON: 10/22/2017. FINDINGS: Interval increase in volume of left pleural effusion. Lungs are now hypoinflated. Fluid in the righ t minor fissure. Cardiac shadow is obscured by the shallow inspiration. Pulmonary venous engorgemen t. Mild airspace densities at the right medial base, left medial base, and left lateral base. No la rge pneumothorax. Atherosclerotic calcification and ectasia of the thoracic aorta. IMPRESSION: 1. Limited study because of hypoinflated lungs. 2. Interval increase in volume of left pleural effusion. 3. Pulmonary venous congestion. 4. Nonspecific small airspace densities at the bilateral lung bases. 5. There is suspected to be a right pleural effusion as well. FLORENCIA [] POS: KASSIE
[2018-02-26] MEDS ORDERED: Piperacillin/Tazobactam 3.375 GM in Sodium Chloride 0.9% 100 ML IVPB SCH (12:30)
[2018-02-26] MEDS ORDERED: Acetaminophen 1,000 MG in Premix Bag 1 BAG IVPB PRN (13:59)
--- NOTE | 2018-02-26 14:09 | NM ---
NUCLEAR MEDICINE HEPATOBILIARY SCAN: 02/26/2018 HISTORY: An 82-year-old male with persistent abdominal pain after recent laparoscopic cholecystectomy; rule ou t bile leak. TECHNIQUE: An IV injection of 5.1 millicuries of technetium 99m mebrofenin. Anterior dynamic scintigraphy of the abdomen for one hour. FINDINGS: There is normal uptake and washout of activity from the liver. Bowel activity is visualized. There is no evidence of leakage of bile. IMPRESSION: Negative. No evidence of bile leak. POS: KASSIE
[2018-02-26] MEDS ORDERED: Vancomycin HCl 1.5 GM in Sodium Chloride 0.9% 250 ML 250 ML IVPB SCH (15:00)
[2018-02-26] MEDS ORDERED: Hydrocortisone Sod Succ/PF 100 mg/2 ml Vial IVP SCH ×2 (15:00→18:00)
[2018-02-26 15:03] LABS: Bilirubin Small (Negative); Blood, Urine Large (Negative); Clarity CLOUDY (Clear); Glucose, Urine (Dipstick) Negative (Negative); Leukocyte Small (Negative); Nitrite Negative (Negative); Protein, Urine (Dipstick) 30 mg/dL (Neg-Trace); Specific Gravity, Urine 1.023 (1.002-1.036)
[2018-02-26 15:05] LABS: Pathc Cast-AUWi Flag 3.63 (0-2.49); RBC/HPF GREATER THAN 50-TNTC HPF (0-3); WBC/HPF 21-50 HPF (0-3)
--- NOTE | 2018-02-26 15:06 | PRG ---
DATE OF SERVICE: 02/26/2018 SUBJECTIVE: Balta Guido is doing fairly well today. He seems to be a little agitated. Whenever I try to examine him, he moves my hand. He is not cooperative. OBJECTIVE: VITAL SIGNS: Temperature 97.6 degrees, heart rate 65, and blood pressure 95/64. LUNGS: Clear to auscultation. CARDIAC: Regular rate and rhythm without murmur or gallop. ABDOMEN: Soft, nondistended, although when I try to examine him, he moves my hand away. He is uncooperative. LABORATORY DATA: Today, his white count is 10 and hemoglobin 11.7. Liver function tests are improved. Sodium 141 and potassium 4.1. ASSESSMENT AND PLAN: Doing well after endoscopic retrograde cholangiopancreatography, sphincterotomy, and stone extraction. His liver function tests are improving, and after resolution of his choledocholithiasis, he underwent laparoscopic video cholecystectomy and still having some pain. His liver function tests are trending downward. Because of his discomfort and inability to communicate with him, I did attempt to obtain a HIDA scan today, but he was uncooperative and it could not be done. I think the chance of having any kind of bile leak is negligible given his liver function tests trending down, and in addition, the patient had a sphincterotomy, which should be adequate to treat a bile leak even if present. There are no hemodynamic or clinical signs of bile leak. We will not further pursue this. I expect his pain to improve with time. Job ID: [id number]
[2018-02-26 15:14] LABS: Bacteria/HPF 1+ HPF (None Seen); Hyaline Casts/LPF 0-3 HYALINE CAST LPF (0-3 Hyaline); Renal Epithelial None Seen HPF (0-3); Transitional Epithelial NONE SEEN HPF (0-3)
--- NOTE | 2018-02-26 16:16 | CT ---
CT OF ABDOMEN AND PELVIS PERFORMED WITH CONTRAST ENHANCEMENT: 02/26/18 COMPARISON: 06/28/16 study. HISTORY: Abdominal pain, history of appendectomy and right hip replacement. Patient refused to ingest oral con trast. There are bilateral pleural effusions right larger than left with bibasilar atelectasis or pneumonic infiltrate. The liver and spleen are within normal limits of size. There is fluid surrounding the liver, slightly more prominent along the inferior margin of the liver capsule. There is minimal fluid elsewhere. Sm all amount of fluid is seen adjacent to the tip of the spleen. The pancreas is atrophic but I see no evidence for pancreatitis. The gallbladder has been removed. Right and left adrenal glands are normal in appearance. Right and left kidneys are normal in size. Th ere is a nonobstructing mid pole right renal calculus and a lower pole right renal cyst. There is an aortoiliac stent in place. There is no significant periaortic or mesenteric adenopathy. CT OF PELVIS PERFORMED WITH CONTRAST ENHANCEMENT: There is some trace free fluid in the right pericolic gutter region. A small amount of fluid near th e cecum. There is also some free fluid within the cul-de-sac region. No inflammatory process. IMPRESSION: 1. Minimal ascites. 2. Small bilateral effusions right larger than left with bibasilar parenchymal lung changes eith er representing atelectasis versus pneumonia. 3. Postop cholecystectomy change. 4. No CT evidence for pancreatitis. 5. Nonobstructing approximately 5 mm right renal calculus. POS: [facility]
[2018-02-26] MEDS: Dextrose 5 %-0.45 % NaCl 1,000 ML IV SCH (18:43)
[2018-02-26] MEDS: Divalproex Sodium 125 mg Sprinkle Capsule PO SCH (18:49)
--- NOTE | 2018-02-26 19:58 | PDOC.PN ---
- Subjective Encounter Start Date: 02/26/18 Encounter Start Time: 10:15 Subjective: pt up in bed confused - Objective Resuscitation Status - Order Detail: 02/21/18 18:36 Resuscitation Status Routine Resuscitation Status: DNAR: NO Resuscitation Discussed with: pt's Vital Signs & Weight: Vital Signs (12 hours) Temp Pulse Resp BP Pulse Ox 02/26/18 17:00 125/67 02/26/18 16:45 98.1 F 63 20 140/70 90 L 02/26/18 15:00 97.8 F 63 20 99/50 L 90 L 02/26/18 14:40 64 22 H 86/38 L 86 L 02/26/18 11:05 65 18 95/54 L 90 L 02/26/18 08:05 67 22 H 91 L Weight Weight 186 lb 1.6 oz I&O: 02/25/18 02/26/18 02/27/18 06:59 06:59 06:59 Intake Total 650 4350 1700 Output Total 690 300 Balance 650 3660 1400 Result Diagrams: 02/26/18 06:13 02/26/18 06:13 Phys Exam - Physical Examination Neck: no nodes, no JVD, supple, full ROM Respiratory: no wheezing, no rales, no rhonchi, wheezing present, clear to auscultation bilateral Cardiovascular: RRR, no significant murmur, no rub, gallop, irregular Gastrointestinal: soft, non-tender, no distention, positive bowel sounds Dx/Plan (1) Abdominal pain Code(s): R10.9 - UNSPECIFIED ABDOMINAL PAIN Status: Acute (2) Acute cholecystitis Code(s): K81.0 - ACUTE CHOLECYSTITIS Status: Acute (3) Choledocholithiasis Code(s): K80.50 - CALCULUS OF BILE DUCT W/O CHOLANGITIS OR CHOLECYST W/O OBST Status: Acute (4) Dementia Code(s): F03.90 - UNSPECIFIED DEMENTIA WITHOUT BEHAVIORAL DISTURBANCE Status: Acute (5) Elevated LFTs Code(s): R94.5 - ABNORMAL RESULTS OF LIVER FUNCTION STUDIES Status: Acute - Plan pt hypotensive, unknow etiology. HIDA scan no bile leak -: will broaden his abx. pt given fluids with minimal response -: will add steroids and get abd/pel CT to rule out bleeding -: hh stable. pt's bp after several hours improved. will monitor. * . Review of Systems - Review of Systems Other: unable to obtain - Medications/Allergies Allergies/Adverse Reactions: Allergies Allergy/AdvReac Type Severity Reaction Status Date / Time No Known Allergies Allergy Verified 10/23/17 06:16 Medications: Current Medications Albuterol/Ipratropium (Duoneb) 3 ml NEB Q4H PRN PRN Reason: Dyspnea/Wheezing/SOB Last Admin: 02/26/18 08:05 Dose: 3 ml Divalproex Sodium (Depakote Sprinkle) 125 mg PO 1800 [facility] Last Admin: 02/26/18 18:49 Dose: Not Given Enoxaparin Sodium (Lovenox) 40 mg SC 2100 [facility] Last Admin: 02/25/18 20:55 Dose: 40 mg Escitalopram Oxalate (Lexapro) 10 mg PO DAILY [facility] Last Admin: 02/26/18 10:34 Dose: Not Given Haloperidol Lactate (Haldol) 5 mg IM Q4H PRN PRN Reason: Agitation Hydrocortisone Sodium Succinate (Solu-Cortef) 50 mg IVP 0400,1000,1600,2200 [facility] Stop: 02/28/18 16:01 Piperacillin Sod/Tazobactam (Sod 3.375 gm/ Sodium Chloride) 100 mls @ 200 mls/ hr IVPB 0200,0800,1400,2000 [facility] Acetaminophen 1,000 mg/ Device 100 mls @ 400 mls/hr IVPB Q6H PRN PRN Reason: Fever/Mild Pain Stop: 02/27/18 14:00 Dextrose/Sodium Chloride (D5 1/2 Ns) 1,000 mls @ 75 mls/hr IV .[id number] [facility] Last Admin: 02/26/18 18:43 Dose: 1,000 mls Melatonin (Melatonin) 3 mg PO HS [facility] Last Admin: 02/25/18 20:53 Dose: Not Given Miscellaneous Medication (Pharmacy To Dose) 1 each IVPB PRN PRN PRN Reason: Pharmacy to dose Morphine Sulfate (Morphine) 2 mg SLOW IVP Q4H PRN PRN Reason: Mild-Moderate Pain (1-5) Last Admin: 02/26/18 05:19 Dose: 2 mg Ondansetron HCl (Zofran) 4 mg IVP Q6H PRN PRN Reason: Nausea/Vomiting Last Admin: 02/21/18 19:50 Dose: 4 mg Polyethylene Glycol (Miralax) 17 gm PO DAILY [facility] Last Admin: 02/26/18 10:34 Dose: Not Given Quetiapine Fumarate (Seroquel) 50 mg PO HS [facility] Last Admin: 02/25/18 20:53 Dose: Not Given Sodium Chloride (Flush - Normal Saline) 10 ml IVF PRN PRN PRN Reason: Saline Flush Last Admin: 02/21/18 20:11 Dose: 10 ml Sterile Water (Water For Injection) 10 ml FS Q2H PRN PRN Reason: TO RECONSTITUTE ZIPRASIDONE Tramadol HCl (Ultram) 50 mg PO Q6H PRN PRN Reason: Pain 1-5 Last Admin: 02/24/18 14:40 Dose: 50 mg Trazodone HCl (Desyrel) 50 mg PO [facility] Last Admin: 02/25/18 20:53 Dose: Not Given Ziprasidone (Geodon) 10 mg IM Q2H PRN PRN Reason: Agitation Last Admin: 02/26/18 11:26 Dose: 10 mg
[2018-02-26] MEDS: Enoxaparin Sodium 40 MG/0.4 ML SYRINGE SC SCH (21:15)
[2018-02-26] MEDS: Piperacillin/Tazobactam 3.375 GM in Sodium Chloride 0.9% 100 ML IVPB SCH (21:15)
[2018-02-26] MEDS: traZODone HCl 50 MG TAB PO SCH (21:16)
[2018-02-26] MEDS: Melatonin 3 MG TAB PO SCH (21:16)
[2018-02-26] MEDS: Hydrocortisone Sod Succ/PF 100 mg/2 ml Vial IVP SCH (21:21)
--- NOTE | 2018-02-27 00:32 | CON ---
DATE OF CONSULTATION: 02/26/2018 SERVICE: Pulmonary Medicine. REASON FOR CONSULT: Marginal blood pressures. HISTORY OF PRESENT ILLNESS: The patient is a cantankerous 82-year-old white male with past medical history significant for very advanced dementia. At baseline, it takes 1-2 people to get him out of bed and into a chair. He lives in a total care nursing facility. He is not independent in any of his ADLs. In this usual state of health, he started having increasing abdominal discomfort and was discovered to have possible cholecystitis, but definite choledocholithiasis. He underwent an ERCP and multiple stones were extracted. After he cooled off for a day and a half, he went down for a cholecystectomy. This was performed on the 24 of February. He is currently postop day #2 from that surgery. He was having some marginal blood pressures, and increasing oxygen requirements. Yesterday, hepatobiliary scan was performed to make certain there was no significant leak. The scan confirmed that there was no significant leak. He went down for a CT of the abdomen and pelvis, which did not demonstrate any significant collection of free fluid. Furthermore , he did not have any findings consistent with pancreatitis. His lipase was also normal. Because he has been essentially without food for the past several days, he was given only a little bit of IV hydration. With this, his blood pressures firmed up a little bit. I talked to the at length at bedside. She is suggesting to me that he has been very clear about not wanting aggressive maneuvers moving forward. He would not want any endotracheal intubation, or chest compressions. We talked about the possibility of needing to put him on blood pressure medicines to boost his blood pressure up. She was okay with this initially, but when talking about the procedure in order to make this happen, the patient's did not want to put him through that type of a procedure. He cannot provide any additional elements of the history. He has discomfort with anything that you touch on his body. He is following some simple commands. He will wake up and attend, without stimulation , he will fall back to sleep within 10 seconds. PAST MEDICAL HISTORY: 1. Dementia, advanced. 2. Hypertension. 3. Dyslipidemia. 4. History of myocardial infarction. 5. History of stroke. 6. Coronary artery disease. PAST SURGICAL HISTORY: 1. Appendectomy. 2. Hip replacement. 3. Carotid surgery. 4. Percutaneous coronary intervention with stent placement. 5. ERCP. 6. Cholecystectomy. SOCIAL HISTORY: Negative for significant alcohol, tobacco, or illicit drug use. 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 He has a very advanced dementia and requires complete care. FAMILY HISTORY: Noncontributory. ALLERGIES: NO KNOWN DRUG ALLERGIES. MEDICATIONS: List of his inpatient medications was reviewed. No specific updates were made at this time. REVIEW OF SYSTEMS: This cannot be obtained as the patient is statically encephalopathic. LABORATORY DATA: WBC 10.9, hemoglobin 11.7, platelets 138,000. Basic metabolic profile is completely unremarkable. Total bilirubin 1.9 and stable, alkaline phosphatase downtrending at 266. Liver function studies are otherwise unremarkable. Phosphorus 2.1, lipase is below the assay limits of 4. Urinalysis is positive for red blood cells, many white blood cells, squamous epithelial cells, large amount of blood. Leukocyte esterase is small and he has negative nitrites. IMAGIN. Chest x-ray demonstrates volume loss with low lung volumes in the bilateral ho. There is fluid in the right fissure likely small bilateral pleural effusions are noted. I cannot exclude the possibility of an infiltrate. 2. Hepatobiliary scan demonstrates no evidence of bile leak. 3. Echocardiogram demonstrates a normal ejection fraction. No significant valvular abnormalities are mentioned. There is 1/[address] of the abdomen and pelvis demonstrates a little bit of free fluid in the belly, not inconsistent with his recent surgery. There is no evidence of acute pancreatitis. There are minuscule bilateral pleural effusions noted. There is a dense atelectasis in the bilateral lower lung ho. An infiltrate there cannot be entirely excluded, but I favor atelectasis here. ASSESSMENT: 1. Acute hypoxic respiratory failure. 2. Dense atelectasis in the bilateral lower lung ho. 3. Healthcare-associated pneumonia, unlikely. 4. Choledocholithiasis, status post cholecystectomy, postoperative day #2 and postoperative endoscopic retrograde cholangiopancreatography day #4. 5. Marginal blood pressures, resolved. DISCUSSION AND PLAN: I think it is reasonable to give him a 3-day course of stress doses of steroids. He got a small bolus of fluid and had a significant improvement in his blood pressures associated with that. There was no evidence of end-organ damage. 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 For the delirium, we need to minimize interventions through time and for his atelectasis, we will need to mobilize the patient as much as he can tolerate as soon as possible. That being said, his static confusional state is going to prevent us from mobilizing him effectively. We will have Physical therapy work with him to the best of their ability. 70 minutes have been devoted to this patient in various activities. I personally reviewed all imaging studies and laboratory data noted within this document. For fifty percent of this time, I was interacting with the patient at the bedside or coordinating care with the care team. For the remainder of the time I was immediately available to the patient in the hospital unit. Job ID: [id number] MTDD
[2018-02-27] MEDS: Piperacillin/Tazobactam 3.375 GM in Sodium Chloride 0.9% 100 ML IVPB SCH ×4 (02:22→20:03)
[2018-02-27] MEDS: Hydrocortisone Sod Succ/PF 100 mg/2 ml Vial IVP SCH ×2 (03:44→08:24)
[2018-02-27] MEDS: Dextrose 5 %-0.45 % NaCl 1,000 ML IV SCH ×2 (06:25→14:18)
[2018-02-27] MEDS ORDERED: Furosemide 20 MG/2 ML VIAL SLOW IVP SCH (07:30)
[2018-02-27 08:16] LABS: #Basophils 0.1 thou/uL (0.0-0.2); #Lymphocytes 0.5 thou/uL (1.20-3.40); #Monocytes 0.2 thou/uL (0.11-0.59); #Neutrophils 7.7 thou/uL (1.40-6.50); %Basophils 1.7 % (0.0-1.0); %Eosinophils 0.4 % (0.0-10.0); %Lymphocytes 5.9 % (21.0-51.0); %Monocytes 2.7 % (0.0-10.0); %Neutrophils 89.4 % (42.0-75.0); Hemoglobin 11.5 g/dL (14.0-18.0); Mean Corpuscular Hemoglobin 34.1 pg (27.0-31.0); Mean Platelet Volume 8.9 fL (7.4-10.4); Platelet Count 128 thou/uL (130-400); RBC Distribution Width 14.8 % (11.5-14.5); Red Blood Cell (RBC) Count 3.37 mill/uL (4.70-6.10); White Blood Cell (WBC) Count 8.6 thou/uL (4.8-10.8)
[2018-02-27] MEDS: Escitalopram Oxalate 10 mg Tablet PO SCH (08:32)
[2018-02-27] MEDS: Polyethylene Glycol 3350 17 GM Packet PO SCH (08:35)
[2018-02-27 08:41] LABS: ALT (SGPT) 21 U/L (8-55); AST (SGOT) 19 U/L (5-34); Albumin 2.3 g/dL (3.4-4.8); Alkaline Phosphatase 227 U/L (40-150); Anion Gap 11 mmol/L (10-20); BUN (Urea Nitrogen) 14 mg/dL (8.4-25.7); Bilirubin, Direct 1.4 mg/dL (0.1-0.3); Bilirubin, Total 1.8 mg/dL (0.2-1.2); Calc. Creatinine Clearance 64 mL/min (70-130); Calcium 8.2 mg/dL (7.8-10.44); Carbon Dioxide 25 mmol/L (23-31); Chloride 109 mmol/L (98-107); Estimated GFR-MDRD 67; Glucose 145 mg/dL (83-110); Magnesium 1.7 mg/dL (1.6-2.6); Phosphorus 2.6 mg/dL (2.3-4.7); Potassium 3.8 mmol/L (3.5-5.1); Protein, Total 5.4 g/dL (5.8-8.1); Sodium 141 mmol/L (136-145)
[2018-02-27] MEDS ORDERED: Magnesium Sulfate 2 GM in Sodium Chloride 0.9% 100 ML IVPB SCH (11:45)
--- NOTE | 2018-02-27 12:11 | PRG ---
DATE OF SERVICE: 02/27/2018 SERVICE: Pulmonary Medicine. SUBJECTIVE: The patient is doing fine from respiratory standpoint. He slept very well. He is little agitated last night, associated with cough that came from the belly associated with discomfort. He denies any current fevers, chills, nausea , or vomiting. He is breathing comfortably. OBJECTIVE: VITAL SIGNS: Afebrile, pulse 46, blood pressure 146/71, respirations 24, and saturations 94% on 4 L nasal cannula. GENERAL: The patient is awake and alert, in no apparent distress. LUNGS: Decent air entry. There is no prolonged expiratory phase or wheezing. HEART: Normal rate and regular. ABDOMEN: Tender to palpation throughout. There is no rebound. Soft. Bowel sounds are hypoactive. GENITOURINARY: Veloz catheter in place. NEUROLOGIC: Grossly nonfocal. LABORATORY DATA: WBC 8.6, hemoglobin 11.5, and platelets 128,000. Basic metabolic profile and liver function studies are otherwise unremarkable. Bilirubin is roughly stable at 1.8. Phosphorus 2.6, magnesium 1.7 and stable. Alkaline phosphatase continues to gently trend downward. Blood cultures x2 are unremarkable. ASSESSMENT: 1. Acute hypoxic respiratory failure, improving. 2. Dense atelectasis of the bilateral lower lung ho. 3. Healthcare-associated pneumonia, unlikely. 4. Choledocholithiasis, status post cholecystectomy, postop day #3 and postop endoscopic retrograde cholangiopancreatography, postop day #5. 5. Marginal blood pressures, resolved. DISCUSSION AND PLAN: Give him 3 days of stress dose of steroids. After this, he may require evaluation for relative adrenal insufficiency in the outpatient setting. We will focus our efforts on mobilizing the patient today. We will get his Veloz catheter out and try to get him into a chair, and enlist with the help of physical therapy. Pulmonary Critical Care will continue to follow for the time being. Job ID: [id number] [facility]
[2018-02-27] MEDS ORDERED: Magnesium 2 GM/50 ML 2 GM in Premix Bag 1 BAG IVPB SCH (12:15)
--- NOTE | 2018-02-27 13:09 | PDOC.PN ---
- Subjective Encounter Start Date: 02/27/18 Encounter Start Time: 10:30 Subjective: pt up in bed confused - Objective Resuscitation Status - Order Detail: 02/21/18 18:36 Resuscitation Status Routine Resuscitation Status: DNAR: NO Resuscitation Discussed with: pt's Vital Signs & Weight: Vital Signs (12 hours) Temp Pulse Resp BP Pulse Ox 02/27/18 11:30 97.6 F 54 L 22 H 138/82 94 L 02/27/18 07:32 98.1 F 46 L 24 H 146/71 H 94 L 02/27/18 04:05 98.6 F 58 L 18 154/76 H 94 L Weight Weight 186 lb 1.6 oz I&O: 02/26/18 02/27/18 02/28/18 06:59 06:59 06:59 Intake Total 4350 2540 Output Total 690 650 Balance 3660 1890 Result Diagrams: 02/27/18 08:00 02/27/18 08:00 Phys Exam - Physical Examination Neck: no nodes, no JVD, supple, full ROM Respiratory: no wheezing, no rales, no rhonchi, wheezing present, clear to auscultation bilateral Cardiovascular: RRR, no significant murmur, no rub, gallop, irregular Gastrointestinal: soft, non-tender, no distention, positive bowel sounds Dx/Plan (1) Abdominal pain Code(s): R10.9 - UNSPECIFIED ABDOMINAL PAIN Status: Acute (2) Acute cholecystitis Code(s): K81.0 - ACUTE CHOLECYSTITIS Status: Acute (3) Choledocholithiasis Code(s): K80.50 - CALCULUS OF BILE DUCT W/O CHOLANGITIS OR CHOLECYST W/O OBST Status: Acute (4) Dementia Code(s): F03.90 - UNSPECIFIED DEMENTIA WITHOUT BEHAVIORAL DISTURBANCE Status: Acute (5) Elevated LFTs Code(s): R94.5 - ABNORMAL RESULTS OF LIVER FUNCTION STUDIES Status: Acute - Plan pt awake but confused, will try some ice to see if he tolerates -: will decrease solucortef daily -: bp improved, will add some lasix -: will tell nurse to get pt up * . Review of Systems - Review of Systems Other: unable to obtain - Medications/Allergies Allergies/Adverse Reactions: Allergies Allergy/AdvReac Type Severity Reaction Status Date / Time No Known Allergies Allergy Verified 10/23/17 06:16 Medications: Current Medications Albuterol/Ipratropium (Duoneb) 3 ml NEB Q4H PRN PRN Reason: Dyspnea/Wheezing/SOB Last Admin: 02/27/18 00:47 Dose: 3 ml Divalproex Sodium (Depakote Sprinkle) 125 mg PO 1800 [facility] Last Admin: 02/26/18 18:49 Dose: Not Given Enoxaparin Sodium (Lovenox) 40 mg SC 2100 [facility]PL[facility] Last Admin: 02/26/18 21:15 Dose: 40 mg Escitalopram Oxalate (Lexapro) 10 mg PO DAILY [facility] Last Admin: 02/27/18 08:32 Dose: Not Given Haloperidol Lactate (Haldol) 5 mg IM Q4H PRN PRN Reason: Agitation Hydrocortisone Sodium Succinate (Solu-Cortef) 50 mg IVP DAILY [facility]PL[facility] Stop: 02/28/18 16:01 Last Admin: 02/27/18 08:24 Dose: 50 mg Piperacillin Sod/Tazobactam (Sod 3.375 gm/ Sodium Chloride) 100 mls @ 200 mls/ hr IVPB 0200,0800,1400,2000 REPLACED BY [facility] Last Admin: 02/27/18 08:23 Dose: 100 mls Acetaminophen 1,000 mg/ Device 100 mls @ 400 mls/hr IVPB Q6H PRN PRN Reason: Fever/Mild Pain Stop: 02/27/18 14:00 Last Admin: 02/27/18 03:49 Dose: 100 mls Dextrose/Sodium Chloride (D5 1/2 Ns) 1,000 mls @ 75 mls/hr IV .[id number] REPLACED BY [facility] Last Admin: 02/27/18 06:25 Dose: Not Given Magnesium Sulfate 2 gm/ Device 50 mls @ 100 mls/hr IVPB NOW REPLACED BY [facility] Stop: 02/27/18 14:00 Melatonin (Melatonin) 3 mg PO HS REPLACED BY [facility] Last Admin: 02/26/18 21:16 Dose: Not Given Miscellaneous Medication (Pharmacy To Dose) 1 each IVPB PRN PRN PRN Reason: Pharmacy to dose Ondansetron HCl (Zofran) 4 mg IVP Q6H PRN PRN Reason: Nausea/Vomiting Last Admin: 02/21/18 19:50 Dose: 4 mg Polyethylene Glycol (Miralax) 17 gm PO DAILY [facility]PL[facility] Last Admin: 02/27/18 08:35 Dose: Not Given Quetiapine Fumarate (Seroquel) 50 mg PO HS [facility] Last Admin: 02/26/18 21:16 Dose: Not Given Sodium Chloride (Flush - Normal Saline) 10 ml IVF PRN PRN PRN Reason: Saline Flush Last Admin: 02/21/18 20:11 Dose: 10 ml Sterile Water (Water For Injection) 10 ml FS Q2H PRN PRN Reason: TO RECONSTITUTE ZIPRASIDONE Tramadol HCl (Ultram) 50 mg PO Q6H PRN PRN Reason: Pain 1-5 Last Admin: 02/24/18 14:40 Dose: 50 mg Trazodone HCl (Desyrel) 50 mg PO HS [facility] Last Admin: 02/26/18 21:16 Dose: Not Given Ziprasidone (Geodon) 10 mg IM Q2H PRN PRN Reason: Agitation Last Admin: 02/26/18 11:26 Dose: 10 mg
--- NOTE | 2018-02-27 16:51 | PRG ---
DATE OF SERVICE: 02/27/2018 SUBJECTIVE: Mr. Guido is doing well today. He is eating. OBJECTIVE: VITAL SIGNS: Temperature 97.4 degrees, heart rate 41, and blood pressure 135/67. LUNGS: Clear to auscultation. CARDIAC: Regular rate and rhythm without murmur or gallop. ABDOMEN: Soft. Mild diffuse tenderness, but no rebound tenderness. LABORATORY DATA: The patient's white count is 8, hemoglobin 11.5. Basic metabolic profile normal. Bilirubin is decreased at 1.8. Liver function tests are improving. CT scan of the abdomen and pelvis yesterday reveals postoperative changes. Scant fluid here and there, nothing that looks like an abscess. Clinically, he does not have an abscess. HIDA scan was difficult, but did not show any bile leak and normal radiotracer into the small bowel. ASSESSMENT AND PLAN: Doing well after endoscopic retrograde cholangiopancreatography, stone extraction, and subsequent cholecystectomy. The patient is doing well. At this point, I will see him as needed. He can follow up in my office as needed. No followup is necessary as an outpatient. I will see him as needed this hospitalization. Please call if necessary. Job ID: [id number]
[2018-02-27] MEDS: Divalproex Sodium 125 mg Sprinkle Capsule PO SCH (17:36)
[2018-02-27] MEDS: Acetaminophen 1,000 MG in Premix Bag 1 BAG IVPB PRN (17:45)
[2018-02-27] MEDS: Enoxaparin Sodium 40 MG/0.4 ML SYRINGE SC SCH (20:03)
[2018-02-27] MEDS: Melatonin 3 MG TAB PO SCH (20:29)
[2018-02-27] MEDS: traZODone HCl 50 MG TAB PO SCH (20:30)
[2018-02-28] MEDS: Piperacillin/Tazobactam 3.375 GM in Sodium Chloride 0.9% 100 ML IVPB SCH ×3 (02:44→14:44)
[2018-02-28] MEDS: Acetaminophen 1,000 MG in Premix Bag 1 BAG IVPB PRN (04:48)
[2018-02-28] MEDS: Dextrose 5 %-0.45 % NaCl 1,000 ML IV SCH (04:48)
[2018-02-28] MEDS: Polyethylene Glycol 3350 17 GM Packet PO SCH (08:50)
[2018-02-28] MEDS: Hydrocortisone Sod Succ/PF 100 mg/2 ml Vial IVP SCH (08:50)
[2018-02-28] MEDS: Escitalopram Oxalate 10 mg Tablet PO SCH (08:50)
--- NOTE | 2018-02-28 13:40 | PRG ---
DATE OF SERVICE: 02/28/2018 SERVICE: Pulmonary Medicine. INTERVAL HISTORY: The patient is doing fine from respiratory standpoint. He is breathing very comfortably. He has no complaints of chest pain, fevers, or chills. He is coughing. He is not able to clear the sputum from the back of his throat. He demonstrates pretty significant weakness. Otherwise, he is cool, calm, and collected this morning, his mentation has much improved. PHYSICAL EXAMINATION: VITAL SIGNS: Afebrile, pulse 41, blood pressure 147/82, respirations 20, saturation 97%, on 4 L nasal cannula. GENERAL: The patient is awake and alert, in no apparent distress. LUNGS: Rhonchi are present. There is no prolonged expiratory phase. No wheezing or crackles are appreciated. HEART: Normal rate and regular. ABDOMEN: Soft, nontender, and nondistended. Bowel sounds are positive. MUSCULOSKELETAL: No cyanosis or clubbing. No pitting in the bilateral lower extremities. NEUROLOGIC: Grossly nonfocal. ASSESSMENT: 1. Acute hypoxic respiratory failure, improving. 2. Dense atelectasis of the bilateral lower lung ho. 3. Healthcare-associated pneumonia, unlikely. 4. Choledocholithiasis, status post cholecystectomy, postop day 4 and post ERCP day 6. DISCUSSION AND PLAN: The patient needs to mobilize through time. In 4 to 6 weeks in the outpatient setting, repeat chest x-ray should be performed. If these pocket fluids persist, thoracentesis could be considered if we were going to be aggressive. At this point, no formal requirement for Pulmonary Critical Care opinion is required unless he takes a turn for the worse. At this point, I will sign off. Please call with additional questions or concerns moving forward. Job ID: [id number]
--- NOTE | 2018-02-28 14:36 | PDOC.PN ---
- Subjective Encounter Start Date: 02/28/18 Encounter Start Time: 14:35 Subjective: pt up in bed more awake - Objective Resuscitation Status - Order Detail: 02/21/18 18:36 Resuscitation Status Routine Resuscitation Status: DNAR: NO Resuscitation Discussed with: pt's Vital Signs & Weight: Vital Signs (12 hours) Temp Pulse Resp BP Pulse Ox 02/28/18 12:00 97.5 F L 41 L 20 147/82 H 97 02/28/18 08:00 97.5 F L 41 L 20 155/73 H 97 02/28/18 04:25 98 F 48 L 18 146/66 H 96 Weight Weight 186 lb 1.6 oz I&O: 02/27/18 02/28/18 03/01/18 06:59 06:59 06:59 Intake Total 2540 1875 Output Total 650 900 Balance 1890 975 Result Diagrams: 02/27/18 08:00 02/27/18 08:00 Phys Exam - Physical Examination Neck: no nodes, no JVD, supple, full ROM Respiratory: no wheezing, no rales, no rhonchi, wheezing present, clear to auscultation bilateral Cardiovascular: RRR, no significant murmur, no rub, gallop, irregular Gastrointestinal: soft, non-tender, no distention, positive bowel sounds confused Dx/Plan (1) Abdominal pain Code(s): R10.9 - UNSPECIFIED ABDOMINAL PAIN Status: Acute (2) Acute cholecystitis Code(s): K81.0 - ACUTE CHOLECYSTITIS Status: Acute (3) Choledocholithiasis Code(s): K80.50 - CALCULUS OF BILE DUCT W/O CHOLANGITIS OR CHOLECYST W/O OBST Status: Acute (4) Dementia Code(s): F03.90 - UNSPECIFIED DEMENTIA WITHOUT BEHAVIORAL DISTURBANCE Status: Acute (5) Elevated LFTs Code(s): R94.5 - ABNORMAL RESULTS OF LIVER FUNCTION STUDIES Status: Acute - Plan pt more awake, will resume his meds -: will dicontinue his abx, bp stable -: pt had a bm, possible discharge to his snf soon * . Review of Systems - Review of Systems Other: unable to obtain - Medications/Allergies Allergies/Adverse Reactions: Allergies Allergy/AdvReac Type Severity Reaction Status Date / Time No Known Allergies Allergy Verified 10/23/17 06:16 Medications: Current Medications Albuterol/Ipratropium (Duoneb) 3 ml NEB Q4H PRN PRN Reason: Dyspnea/Wheezing/SOB Last Admin: 02/27/18 00:47 Dose: 3 ml Divalproex Sodium (Depakote Sprinkle) 125 mg PO 1800 [facility] Last Admin: 02/27/18 17:36 Dose: Not Given Enoxaparin Sodium (Lovenox) 40 mg SC 2100 [facility] Last Admin: 02/27/18 20:03 Dose: 40 mg Escitalopram Oxalate (Lexapro) 10 mg PO DAILY [facility] Last Admin: 02/28/18 08:50 Dose: 10 mg Haloperidol Lactate (Haldol) 5 mg IM Q4H PRN PRN Reason: Agitation Acetaminophen 1,000 mg/ Device 100 mls @ 400 mls/hr IVPB Q6H PRN PRN Reason: Pain Stop: 02/28/18 17:37 Last Admin: 02/28/18 04:48 Dose: 100 mls Melatonin (Melatonin) 3 mg PO HS [facility] Last Admin: 02/27/18 20:29 Dose: Not Given Miscellaneous Medication (Pharmacy To Dose) 1 each IVPB PRN PRN PRN Reason: Pharmacy to dose Ondansetron HCl (Zofran) 4 mg IVP Q6H PRN PRN Reason: Nausea/Vomiting Last Admin: 02/21/18 19:50 Dose: 4 mg Polyethylene Glycol (Miralax) 17 gm PO DAILY [facility] Last Admin: 02/28/18 08:50 Dose: 17 gm Quetiapine Fumarate (Seroquel) 50 mg PO HS [facility] Last Admin: 02/27/18 20:29 Dose: Not Given Sodium Chloride (Flush - Normal Saline) 10 ml IVF PRN PRN PRN Reason: Saline Flush Last Admin: 02/21/18 20:11 Dose: 10 ml Sterile Water (Water For Injection) 10 ml FS Q2H PRN PRN Reason: TO RECONSTITUTE ZIPRASIDONE Tramadol HCl (Ultram) 50 mg PO Q6H PRN PRN Reason: Pain 1-5 Last Admin: 02/24/18 14:40 Dose: 50 mg Trazodone HCl (Desyrel) 50 mg PO HS [facility] Last Admin: 02/27/18 20:30 Dose: Not Given Ziprasidone (Geodon) 10 mg IM Q2H PRN PRN Reason: Agitation Last Admin: 02/26/18 11:26 Dose: 10 mg
[2018-02-28] MEDS: Divalproex Sodium 125 mg Sprinkle Capsule PO SCH (18:34)
[2018-02-28] MEDS: Enoxaparin Sodium 40 MG/0.4 ML SYRINGE SC SCH (19:54)
[2018-02-28] MEDS: traZODone HCl 50 MG TAB PO SCH (19:55)
[2018-02-28] MEDS: Melatonin 3 MG TAB PO SCH (19:55)
[2018-03-01 06:25] LABS: ALT (SGPT) 23 U/L (8-55); AST (SGOT) 27 U/L (5-34); Alkaline Phosphatase 199 U/L (40-150); Anion Gap 11 mmol/L (10-20); BUN (Urea Nitrogen) 16 mg/dL (8.4-25.7); Bilirubin, Total 1.5 mg/dL (0.2-1.2); Calc. Creatinine Clearance 70 mL/min (70-130); Calcium 7.8 mg/dL (7.8-10.44); Carbon Dioxide 24 mmol/L (23-31); Chloride 109 mmol/L (98-107); Estimated GFR-MDRD 75; Glucose 83 mg/dL (83-110); Protein, Total 4.8 g/dL (5.8-8.1); Sodium 141 mmol/L (136-145)
[2018-03-01 06:28] LABS: Potassium 2.9 mmol/L (3.5-5.1)
[2018-03-01] MEDS ORDERED: Potassium Chloride 20 MEQ/100 ML PREMIX BAG IVPB SCH (07:15)
[2018-03-01] MEDS: Escitalopram Oxalate 10 mg Tablet PO SCH (08:11)
[2018-03-01] MEDS: Polyethylene Glycol 3350 17 GM Packet PO SCH (08:11)
[2018-03-01] MEDS: Ondansetron PF 4 MG/2 ML Vial IVP PRN (08:11)
[2018-03-01] MEDS ORDERED: Famotidine 20 MG TAB PO SCH (09:30)
[2018-03-01] MEDS ORDERED: guaiFENesin ER 600 MG TAB PO SCH (09:30)
[2018-03-01] MEDS ORDERED: Potassium Chloride 20 MEQ TAB PO SCH (12:00)
[2018-03-01] MEDS ORDERED: Potassium Chloride 10 MEQ in Premix Bag 1 BAG IVPB SCH ×2 (12:00→12:15)
[2018-03-01] MEDS ORDERED: Calcium Carbonate 500 MG ChewTAB PO PRN (13:54)
[2018-03-01] MEDS: Potassium Chloride 10 MEQ in Premix Bag 1 BAG IVPB SCH ×2 (14:03→17:58)
--- NOTE | 2018-03-01 14:29 | PDOC.PN ---
- Subjective Encounter Start Date: 03/01/18 Encounter Start Time: 10:30 Subjective: pt up in bed no complains - Objective Resuscitation Status - Order Detail: 02/21/18 18:36 Resuscitation Status Routine Resuscitation Status: DNAR: NO Resuscitation Discussed with: pt's Vital Signs & Weight: Vital Signs (12 hours) Temp Pulse Resp BP Pulse Ox 03/01/18 11:41 97.7 F 46 L 20 133/63 91 L 03/01/18 08:00 98.4 F 43 L 20 163/74 H 94 L 03/01/18 04:31 97.7 F 60 19 157/76 H 93 L Weight Weight 186 lb 1.6 oz I&O: 02/28/18 03/01/18 03/02/18 06:59 06:59 06:59 Intake Total 1875 1300 Output Total 900 Balance 975 1300 Result Diagrams: 02/27/18 08:00 03/01/18 05:42 Phys Exam - Physical Examination Neck: no nodes, no JVD, supple, full ROM Respiratory: no wheezing, no rales, no rhonchi, wheezing present, clear to auscultation bilateral Cardiovascular: RRR, no significant murmur, no rub, gallop, irregular Gastrointestinal: soft, non-tender, no distention, positive bowel sounds Dx/Plan (1) Abdominal pain Code(s): R10.9 - UNSPECIFIED ABDOMINAL PAIN Status: Acute (2) Acute cholecystitis Code(s): K81.0 - ACUTE CHOLECYSTITIS Status: Acute (3) Choledocholithiasis Code(s): K80.50 - CALCULUS OF BILE DUCT W/O CHOLANGITIS OR CHOLECYST W/O OBST Status: Acute (4) Dementia Code(s): F03.90 - UNSPECIFIED DEMENTIA WITHOUT BEHAVIORAL DISTURBANCE Status: Acute (5) Elevated LFTs Code(s): R94.5 - ABNORMAL RESULTS OF LIVER FUNCTION STUDIES Status: Acute - Plan will replace K, -: spoke with about discharge she wants him to stay another day -: encourage pt to use IS but due to his dementia it is difficult -: will check electrolytes in am * . Review of Systems - Review of Systems Respiratory: negative: Cough, Dry, Shortness of Breath, Hemoptysis, SOB with Excertion, Pleuritic Pain, Sputum, Wheezing Cardiovascular: negative: chest pain, palpitations, orthopnea, paroxysmal nocturnal dyspnea, edema, light headedness, other Genitourinary: negative: Dysuria, Frequency, Incontinence, Hematuria, Retention , Other - Medications/Allergies Allergies/Adverse Reactions: Allergies Allergy/AdvReac Type Severity Reaction Status Date / Time No Known Allergies Allergy Verified 10/23/17 06:16 Medications: Current Medications Albuterol/Ipratropium (Duoneb) 3 ml NEB Q4H PRN PRN Reason: Dyspnea/Wheezing/SOB Last Admin: 02/27/18 00:47 Dose: 3 ml Calcium Carbonate (Tums) 1,000 mg PO Q4H PRN PRN Reason: INDIGESTION Last Admin: 03/01/18 14:02 Dose: 1,000 mg Divalproex Sodium (Depakote Sprinkle) 125 mg PO 1800 [facility] Last Admin: 02/28/18 18:34 Dose: 125 mg Enoxaparin Sodium (Lovenox) 40 mg SC 2100 [facility] Last Admin: 02/28/18 19:54 Dose: 40 mg Escitalopram Oxalate (Lexapro) 10 mg PO DAILY [facility] Last Admin: 03/01/18 08:11 Dose: 10 mg Famotidine (Pepcid) 20 mg PO BID [facility] Guaifenesin (Mucinex) 600 mg PO BID [facility] Haloperidol Lactate (Haldol) 5 mg IM Q4H PRN PRN Reason: Agitation Melatonin (Melatonin) 3 mg PO HS [facility] Last Admin: 02/28/18 19:55 Dose: 3 mg Miscellaneous Medication (Pharmacy To Dose) 1 each IVPB PRN PRN PRN Reason: Pharmacy to dose Ondansetron HCl (Zofran) 4 mg IVP Q6H PRN PRN Reason: Nausea/Vomiting Last Admin: 03/01/18 08:11 Dose: 4 mg Polyethylene Glycol (Miralax) 17 gm PO DAILY [facility] Last Admin: 03/01/18 08:11 Dose: Not Given Quetiapine Fumarate (Seroquel) 50 mg PO HS [facility] Last Admin: 02/28/18 19:55 Dose: 50 mg Sodium Chloride (Flush - Normal Saline) 10 ml IVF PRN PRN PRN Reason: Saline Flush Last Admin: 03/01/18 08:12 Dose: 10 ml Sterile Water (Water For Injection) 10 ml FS Q2H PRN PRN Reason: TO RECONSTITUTE ZIPRASIDONE Tramadol HCl (Ultram) 50 mg PO Q6H PRN PRN Reason: Pain 1-5 Last Admin: 02/24/18 14:40 Dose: 50 mg Trazodone HCl (Desyrel) 50 mg PO HS [facility] Last Admin: 02/28/18 19:55 Dose: 50 mg Ziprasidone (Geodon) 10 mg IM Q2H PRN PRN Reason: Agitation Last Admin: 02/26/18 11:26 Dose: 10 mg
[2018-03-01 14:33] LABS: Magnesium 1.4 mg/dL (1.6-2.6)
[2018-03-01 14:42] LABS: Phosphorus 1.6 mg/dL (2.3-4.7); Potassium 2.9 mmol/L (3.5-5.1)
[2018-03-01] MEDS ORDERED: Magnesium 2 GM/50 ML 2 GM in Premix Bag 1 BAG IVPB SCH (16:00)
[2018-03-01] MEDS ORDERED: Potassium Phosphate 9 MMOL in Sodium Chloride 0.9% 100 ML IVPB SCH (16:00)
[2018-03-01] MEDS: Divalproex Sodium 125 mg Sprinkle Capsule PO SCH (18:01)
[2018-03-01] MEDS: traZODone HCl 50 MG TAB PO SCH (20:22)
[2018-03-01] MEDS: Enoxaparin Sodium 40 MG/0.4 ML SYRINGE SC SCH (20:22)
[2018-03-01] MEDS: guaiFENesin ER 600 MG TAB PO SCH (20:23)
[2018-03-01] MEDS: Famotidine 20 MG TAB PO SCH (20:23)
[2018-03-01] MEDS: Melatonin 3 MG TAB PO SCH (20:23)
[2018-03-02] MEDS: Escitalopram Oxalate 10 mg Tablet PO SCH (08:32)
[2018-03-02] MEDS: Famotidine 20 MG TAB PO SCH (08:32)
[2018-03-02] MEDS: guaiFENesin ER 600 MG TAB PO SCH ×3 (08:32→21:24)
[2018-03-02] MEDS: Polyethylene Glycol 3350 17 GM Packet PO SCH (08:33)
[2018-03-02] MEDS ORDERED: Furosemide 20 MG/2 ML VIAL SLOW IVP SCH (10:00)
[2018-03-02 10:46] LABS: Anion Gap 10 mmol/L (10-20); BUN (Urea Nitrogen) 16 mg/dL (8.4-25.7); Calc. Creatinine Clearance 77 mL/min (70-130); Carbon Dioxide 24 mmol/L (23-31); Chloride 109 mmol/L (98-107); Estimated GFR-MDRD 84; Glucose 76 mg/dL (83-110); Magnesium 1.8 mg/dL (1.6-2.6); Potassium 3.9 mmol/L (3.5-5.1); Sodium 139 mmol/L (136-145)
[2018-03-02 10:56] LABS: Phosphorus 1.8 mg/dL (2.3-4.7)
[2018-03-02] MEDS ORDERED: Potassium Phosphate 12 MMOL in Sodium Chloride 0.9% 100 ML IVPB SCH (11:45)
[2018-03-02] MEDS ORDERED: Pantoprazole 40 MG VIAL IVP SCH ×2 (12:15→21:00)
[2018-03-02 13:23] LABS: Troponin I Less than 0.010 ng/mL (< 0.028)
[2018-03-02 13:54] LABS: Hemoglobin 13.4 g/dL (14.0-18.0)
[2018-03-02 14:08] LABS: ALT (SGPT) 22 U/L (8-55); AST (SGOT) 24 U/L (5-34); Albumin 2.1 g/dL (3.4-4.8); Alkaline Phosphatase 208 U/L (40-150); Bilirubin, Total 1.5 mg/dL (0.2-1.2); Protein, Total 5.4 g/dL (5.8-8.1)
[2018-03-02 16:57] LABS: Troponin I Less than 0.010 ng/mL (< 0.028)
--- NOTE | 2018-03-02 17:25 | PDOC.PN ---
- Subjective Encounter Start Date: 03/02/18 Encounter Start Time: 11:15 Subjective: pt up in bed confused, concern that pt is complaining of pain -: to his chest area when he drinks water. - Objective Resuscitation Status - Order Detail: 02/21/18 18:36 Resuscitation Status Routine Resuscitation Status: DNAR: NO Resuscitation Discussed with: pt's Vital Signs & Weight: Vital Signs (12 hours) Temp Pulse Resp BP Pulse Ox 03/02/18 14:57 97.9 F 54 L 24 H 123/55 L 93 L 03/02/18 11:09 97.7 F 60 22 H 108/60 93 L 03/02/18 08:00 92 L 03/02/18 07:43 97.4 F L 47 L 22 H 129/64 92 L 03/02/18 05:42 29 L Weight Weight 186 lb 1.6 oz I&O: 03/01/18 03/02/18 03/03/18 06:59 06:59 06:59 Intake Total 1300 605 Balance 1300 605 Result Diagrams: 03/02/18 10:00 03/02/18 10:00 Phys Exam - Physical Examination Neck: no nodes, no JVD, supple, full ROM Respiratory: no wheezing, no rales, no rhonchi, wheezing present, clear to auscultation bilateral Cardiovascular: RRR, no significant murmur, no rub, gallop, irregular Gastrointestinal: soft, positive bowel sounds mild pain on palpation to right upper quadrant Dx/Plan (1) Abdominal pain Code(s): R10.9 - UNSPECIFIED ABDOMINAL PAIN Status: Acute (2) Acute cholecystitis Code(s): K81.0 - ACUTE CHOLECYSTITIS Status: Acute (3) Choledocholithiasis Code(s): K80.50 - CALCULUS OF BILE DUCT W/O CHOLANGITIS OR CHOLECYST W/O OBST Status: Acute (4) Dementia Code(s): F03.90 - UNSPECIFIED DEMENTIA WITHOUT BEHAVIORAL DISTURBANCE Status: Acute (5) Elevated LFTs Code(s): R94.5 - ABNORMAL RESULTS OF LIVER FUNCTION STUDIES Status: Acute - Plan will change pepcid to protonix for possible GERD -: still does not feel he should be discharged -: will replace electrolytes. trop negative, encourage IS use -: pt to get up out of bed. his home meds trazadone and seroquel -: doses have been reduced due to pt being more drowsy. * . Review of Systems - Review of Systems Other: unable to obtain - Medications/Allergies Allergies/Adverse Reactions: Allergies Allergy/AdvReac Type Severity Reaction Status Date / Time No Known Allergies Allergy Verified 10/23/17 06:16 Medications: Current Medications Albuterol/Ipratropium (Duoneb) 3 ml NEB Q4H PRN PRN Reason: Dyspnea/Wheezing/SOB Last Admin: 02/27/18 00:47 Dose: 3 ml Calcium Carbonate (Tums) 1,000 mg PO Q4H PRN PRN Reason: INDIGESTION Last Admin: 03/01/18 14:02 Dose: 1,000 mg Divalproex Sodium (Depakote Sprinkle) 125 mg PO 1800 [facility] Last Admin: 03/01/18 18:01 Dose: 125 mg Enoxaparin Sodium (Lovenox) 40 mg SC 2100 [facility] Last Admin: 03/01/18 20:22 Dose: 40 mg Escitalopram Oxalate (Lexapro) 10 mg PO DAILY [facility] Last Admin: 03/02/18 08:32 Dose: 10 mg Guaifenesin (Mucinex) 600 mg PO BID [facility] Last Admin: 03/02/18 08:32 Dose: 600 mg Haloperidol Lactate (Haldol) 5 mg IM Q4H PRN PRN Reason: Agitation Melatonin (Melatonin) 3 mg PO HS [facility] Last Admin: 03/01/18 20:23 Dose: 3 mg Miscellaneous Medication (Pharmacy To Dose) 1 each IVPB PRN PRN PRN Reason: Pharmacy to dose Miscellaneous Medication (Phos-Nak) 1 pkt PO TID [facility] Stop: 03/04/18 15:00 Last Admin: 03/02/18 14:50 Dose: 1 pkt Ondansetron HCl (Zofran) 4 mg IVP Q6H PRN PRN Reason: Nausea/Vomiting Last Admin: 03/01/18 08:11 Dose: 4 mg Pantoprazole Sodium (Protonix) 40 mg PO BID [facility] Polyethylene Glycol (Miralax) 17 gm PO DAILY [facility] Last Admin: 03/02/18 08:33 Dose: 17 gm Quetiapine Fumarate (Seroquel) 25 mg PO HS [facility] Sodium Chloride (Flush - Normal Saline) 10 ml IVF PRN PRN PRN Reason: Saline Flush Last Admin: 03/01/18 08:12 Dose: 10 ml Sodium Chloride (Flush - Normal Saline) 10 ml IVF Q12HR [facility] Sterile Water (Water For Injection) 10 ml FS Q2H PRN PRN Reason: TO RECONSTITUTE ZIPRASIDONE Tramadol HCl (Ultram) 50 mg PO Q6H PRN PRN Reason: Pain 1-5 Last Admin: 02/24/18 14:40 Dose: 50 mg Trazodone HCl (Desyrel) 25 mg PO HS [facility] Ziprasidone (Geodon) 10 mg IM Q2H PRN PRN Reason: Agitation Last Admin: 02/26/18 11:26 Dose: 10 mg
[2018-03-02] MEDS: Divalproex Sodium 125 mg Sprinkle Capsule PO SCH (17:44)
[2018-03-02] MEDS: traZODone HCl 50 MG TAB PO SCH (20:54)
[2018-03-02] MEDS: Melatonin 3 MG TAB PO SCH ×2 (20:54→21:25)
[2018-03-02] MEDS: Enoxaparin Sodium 40 MG/0.4 ML SYRINGE SC SCH (20:54)
[2018-03-02 21:02] LABS: Troponin I Less than 0.010 ng/mL (< 0.028)
[2018-03-03] MEDS: Escitalopram Oxalate 10 mg Tablet PO SCH (10:34)
[2018-03-03] MEDS: Polyethylene Glycol 3350 17 GM Packet PO SCH (10:35)
[2018-03-03] MEDS: guaiFENesin ER 600 MG TAB PO SCH ×2 (10:35→21:04)
[2018-03-03 12:29] LABS: Anion Gap 17 mmol/L (10-20); BUN (Urea Nitrogen) 16 mg/dL (8.4-25.7); Calc. Creatinine Clearance 83 mL/min (70-130); Calcium 7.2 mg/dL (7.8-10.44); Carbon Dioxide 17 mmol/L (23-31); Chloride 108 mmol/L (98-107); Estimated GFR-MDRD Greater than 90; Glucose 78 mg/dL (83-110); Magnesium 1.7 mg/dL (1.6-2.6); Potassium 4.6 mmol/L (3.5-5.1); Sodium 137 mmol/L (136-145)
[2018-03-03 12:34] LABS: Phosphorus 1.8 mg/dL (2.3-4.7)
[2018-03-03 13:41] LABS: Band 1 % (5-11); Eosinophils 5 % (0-10); Hemoglobin 14.4 g/dL (14.0-18.0); Large Platelets SLIGHT; Lymphocytes 14 % (21-51); MDiff Complete? YES; Macrocytosis SLIGHT = 6-15 cells (100X) (0-5/hpf); Mean Corpuscular HGB CONC 31.5 g/dL (32.0-36.0); Mean Corpuscular Hemoglobin 32.9 pg (27.0-31.0); Mean Platelet Volume 9.1 fL (7.4-10.4); Monocytes 7 % (0-10); Neutrophil 71 % (42-75); Platelet Count 116 thou/uL (130-400); Platelet Morphology Comment Appears Decreased; Polychromasia SLIGHT = 2-3 cells (100X) (0-2/hpf); Reactive Lymphocytes 1 % (0-10); Red Blood Cell (RBC) Count 4.38 mill/uL (4.70-6.10)
--- NOTE | 2018-03-03 18:20 | PDOC.PN ---
- Subjective Encounter Start Date: 03/03/18 Encounter Start Time: 18:15 Subjective: f/u for s/p lap cholecystectomy POD #7 with slow clinical recovery -: and encephalopathy/dementia. - Objective Resuscitation Status - Order Detail: 02/21/18 18:36 Resuscitation Status Routine Resuscitation Status: DNAR: NO Resuscitation Discussed with: pt's TASHI Reviewed: Yes Vital Signs & Weight: Vital Signs (12 hours) Temp Pulse Resp BP Pulse Ox 03/03/18 15:19 97.4 F L 56 L 22 H 153/73 H 94 L 03/03/18 10:45 97.6 F 50 L 22 H 141/67 H 91 L 03/03/18 09:15 91 L 03/03/18 07:37 98.1 F 44 L 20 118/55 L 91 L Weight Weight 186 lb 1.6 oz I&O: 03/02/18 03/03/18 03/04/18 06:59 06:59 06:59 Intake Total 605 600 Balance 605 600 Result Diagrams: 03/03/18 13:01 03/03/18 11:26 Phys Exam - Physical Examination Constitutional: NAD HEENT: PERRLA, sclera anicteric, oral pharynx no lesions Neck: no nodes, no JVD, supple, full ROM Respiratory: no wheezing, no rales, no rhonchi, clear to auscultation bilateral S1, S2 Cardiovascular: RRR, no significant murmur, no rub, gallop minimal TTP Gastrointestinal: soft, no distention, positive bowel sounds Musculoskeletal: no edema, pulses present Neurological: moves all 4 limbs A x O x 1 Skin: normal turgor, cap refill <2 seconds Dx/Plan (1) Metabolic encephalopathy Code(s): G93.41 - METABOLIC ENCEPHALOPATHY Status: Acute Comment: Multifactorial given dementia, recent surgery, sleep/wake cycles and medications , continue supportive mgmt (2) Abdominal pain Code(s): R10.9 - UNSPECIFIED ABDOMINAL PAIN Status: Acute Qualifiers: Abdominal location: epigastric Qualified Code(s): R10.13 - Epigastric pain Comment: Improved, likely mild pain after recent lap anurag (3) Acute cholecystitis Code(s): K81.0 - ACUTE CHOLECYSTITIS Status: Acute Comment: s/p Lap Cholecystectomy POD #7 (4) Dementia Code(s): F03.90 - UNSPECIFIED DEMENTIA WITHOUT BEHAVIORAL DISTURBANCE Status: Chronic (5) HTN (hypertension) Code(s): I10 - ESSENTIAL (PRIMARY) HYPERTENSION Status: Chronic Qualifiers: Hypertension type: essential hypertension Qualified Code(s): I10 - Essential (primary) hypertension Comment: Start Norvasc 2.5mg daily - Plan 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
[2018-03-03] MEDS: Divalproex Sodium 125 mg Sprinkle Capsule PO SCH (18:25)
[2018-03-03] MEDS: Enoxaparin Sodium 40 MG/0.4 ML SYRINGE SC SCH (21:02)
[2018-03-03] MEDS: Melatonin 3 MG TAB PO SCH (21:04)
[2018-03-03] MEDS: traZODone HCl 50 MG TAB PO SCH (21:06)
[2018-03-04] MEDS: traZODone HCl 50 MG TAB PO SCH (07:26)
[2018-03-04] MEDS ORDERED: Amlodipine 5 MG TAB PO SCH (09:00)
[2018-03-04] MEDS: guaiFENesin ER 600 MG TAB PO SCH (09:30)
[2018-03-04] MEDS: Escitalopram Oxalate 10 mg Tablet PO SCH (09:33)
[2018-03-04] MEDS: Polyethylene Glycol 3350 17 GM Packet PO SCH (09:41)
[2018-03-04 11:48] VITALS: BP 141/70; TEMP 97.4
--- NOTE | 2018-03-05 05:21 | DIS ---
DATE OF ADMISSION: 02/21/2018 DATE OF DISCHARGE: 03/04/2018 DISCHARGE DIAGNOSES: 1. Abdominal pain secondary to acute cholecystitis, resolved. 2. Acute cholecystitis, resolved. 3. Choledocholithiasis, resolved. 4. Status post laparoscopic cholecystectomy, 02/24/2018. 5. Acute hypoxic respiratory failure, mild. 6. Metabolic encephalopathy, multifactorial. 7. Advanced dementia. 8. Hypertension, stable. 9. Sinus bradycardia. 10. Severe deconditioning. 11. Hypophosphatemia. 12. Hypokalemia. CONSULTATIONS: 1. Dr. Leary with GI Service. 2. Drs. Prajapati and Nelson with General Surgery Service. 3. Dr. Fierro with Cardiology Service. 4. Dr. Lee with Pulmonology Critical Care Service. PERTINENT LAB AND X-RAY FINDINGS: Potassium ranged between 2.9 to 4.6, phosphorus ranged between 1.6 to 2.6, magnesium level ranged between 1.4 to 1.8. Lipase level less than 4. CBC showed a white blood cell count ranging between 7.0 to 12.9, hemoglobin ranged between 11.4 to 14.4. Blood cultures x2 dated 02/26/2018 showed no growth in 5 days. Abdominal ultrasound dated 02/21/2018 showed cholelithiasis with gallbladder wall thickening and pericholecystic fluid compatible with acute cholecystitis, mild biliary dilation. ERCP dated 02/22/2018 with papillotomy and stone extraction. Please see dictated report for full details. Gallbladder pathology dated 02/24/2018 showed findings consistent with cholecystitis. HIDA scan dated 02/26/2018 showed no evidence for bile leak. CT of the abdomen and pelvis dated 02/26/2018 showed small bilateral pleural effusions, right greater than left with bibasilar parenchymal changes and atelectasis. HOSPITAL COURSE: The patient was initially admitted after presenting with increasing abdominal pain and altered mental status. The patient underwent extensive evaluation and multiple consultations with abdominal imaging showing evidence of choledocholithiasis and acute cholecystitis. The patient underwent GI evaluation with subsequent ERCP with stone extraction on 02/22/2018. The patient was monitored post ERCP with subsequent evaluation by General Surgery Service. The patient underwent subsequent laparoscopic video cholecystectomy on 02/24/2018 without complication. Postoperatively, the patient was noted with hypoxemia as well as persistent altered mentation and encephalopathy. The patient was given general pulmonary supportive management and evaluated by the Pulmonology Service. The patient received oxygen supplementation as well as bronchodilator therapy and IV steroids. The patient was slow to clinically improve and remained severely deconditioned. The patient remained maximal assistance with feeding and total care. The patient subsequently stabilized after general supportive management and monitoring postoperatively. The patient was noted with persistent mild hypoxemia with O2 saturations in the mid to upper 80% range on room air. The patient continued on 2 L/minute by nasal cannula with recommendations to continue oxygen supplementation after discharge. I have examined the patient at the time of discharge and discussed followup instructions. The patient is ready for discharge on 03/04/2018. DISCHARGE MEDICATIONS: 1. Norvasc 2.5 mg p.o. daily. 2. Aspirin 81 mg p.o. daily. 3. Depakote 125 mg p.o. daily. 4. Lexapro 10 mg p.o. daily. 5. DuoNeb 3 mL nebulized q.4 hours p.r.n. 6. Lisinopril 10 mg p.o. daily. 7. Melatonin 3 mg p.o. at bedtime. 8. MiraLAX 17 g p.o. daily. 9. Potassium chloride 20 mEq p.o. b.i.d. x3 days. 10. Seroquel 50 mg p.o. at bedtime. 11. Trazodone 50 mg p.o. at bedtime. 12. Protonix 40 mg p.o. daily. 13. Crestor 40 mg p.o. daily. 14. Zetia 10 mg p.o. daily. FOLLOWUP: The patient will follow up with the primary care provider, Dr. Sarahy Turner after discharge, and the patient will follow up with Dr. Damon with General Surgery Service and to call his office for appointment time and date. CONDITION ON DISCHARGE: Fair. ACTIVITY: Ad-collette. Maximal assistance with sitting and standing. High fall risk precautions. DIET: Regular mechanical soft. CODE STATUS: Do not resuscitate. SPECIAL INSTRUCTIONS: Recommend basic metabolic profile, magnesium, phosphorus weekly until values are normalized. DISPOSITION: Discharged to [facility], [place], [place], 03/04/2018. TIME SPENT: Total time preparing and coordinating discharge is 37 minutes. Job ID: [id number]
--- NOTE | 2018-03-05 13:22 | PQF ---
SUSI JOSE LISY RICO DO [id number] [facility]- [id number] CLINICAL DOCUMENTATION CLARIFICATION FORM: POST DISCHARGE Please refer the query to Dr. Lee to clarify remarks regarding resp failure. Thanks! Dr. Rico DATE: 03/05/2018 ATTN: Dr. Rico Please exercise your independent, professional judgment in responding to the clarification form. Clinical indicators are provided on the bottom of this form for your review Please check appropriate box(s): [ ] Acute hypoxic respiratory failure, mild, is a postoperative complication related to current surgery [ ] Acute hypoxic respiratory failure, mild, is not is a postoperative complication related to current surgery [ ] Other diagnosis (please specify) [ ] Unable to determine In addition, please specify: Present on Admission (POA): [ ] Yes [ ] No [ ] Unable to determine CLINICAL INDICATORS - SIGNS / SYMPTOMS / LABS Per discharge summary: Postoperatively, the patient was noted with hypoxemia. The patient was given general pulmonary supportive management and evaluation by the Pulmonology Service. Per pulmonology consultation Dr. Lee: He was having some marginal blood pressures and increasing oxygen requirements. CT of the abdomen/pelvis: There are miniscule bilateral pleural effusions noted. There is a dense atelectasis in the bilateral lower lung ho. An infiltrate there cannot be entirely excluded but I favor atelectasis here. Acute hypoxic respiratory failure. Per pulmonary progress notes: Acute hypoxic respiratory failure, improving. Dense atelectasis of the bilateral lower lung ho. RISK FACTORS Laparoscopic cholecystectomy 02/24/2018. TREATMENT: Oxygen supplementation. Bronchodilator therapy. IV steroids. Pulmonology consultation. (This form is maintained as a part of the permanent medical record) 2014 [email or web address]. All Rights Reserved [email or web address] [phone] [email or web address]
== END 2018-03-04 14:20 | DRG 417 ==
LOC: ERS 01:11 → SJJU 04:05 → SURG A 02-24 19:42
PROVIDERS: ADMIT Hospitalist; ATTEND Hospitalist
PROC: 0FC98ZZ Extirpation of Matter from Common Bile Duct, Via Natural or Artificial Opening Endoscopic (ICD-10-PCS; 2018-02-22)
PROC: 0FT44ZZ Resection of Gallbladder, Percutaneous Endoscopic Approach (ICD-10-PCS; principal; 2018-02-24)
DX: K80.62 Calculus of gallbladder and bile duct with acute cholecystitis without obstruction (principal); J96.01 Acute respiratory failure with hypoxia; G93.41 Metabolic encephalopathy; Z66 Do not resuscitate; I25.10 Atherosclerotic heart disease of native coronary artery without angina pectoris; F03.90 Unspecified dementia, unspecified severity, without behavioral disturbance, psychotic disturbance, mood disturbance, and anxiety; I10 Essential (primary) hypertension; E78.5 Hyperlipidemia, unspecified; E86.0 Dehydration; R00.1 Bradycardia, unspecified; E83.39 Other disorders of phosphorus metabolism; E87.6 Hypokalemia; I25.2 Old myocardial infarction; Z87.891 Personal history of nicotine dependence; Z86.73 Personal history of transient ischemic attack (TIA), and cerebral infarction without residual deficits; Z95.5 Presence of coronary angioplasty implant and graft; Z79.899 Other long term (current) drug therapy; Z96.642 Presence of left artificial hip joint
CPT/HCPCS: 36415; 71045; 74177; 74330; 76705; 78226; 80048; 80053; 80076; 81001; 83690; 83735; 84100; 84484; 85014; 85018; 85025; 87040; 88304; 93005; 93010; 93306; 94640; 96365; A9537; J0131; J0670; J1610; J1650; J1720; J1940; J1956; J2001; J2270; J2405; J2543; J2704; J3010; J3370; J3475; J3480; J3486; J7050; J7620; P9047; Q9961; Q9966; S0028